=== PATIENT | female | born 1940 | race Caucasian/White ===

== ENCOUNTER 2016-11-15 20:17 | Observation (INO) | payer MEDICARE, OTHER ==
[~2016-11-15] VITALS: Ht 160 cm; Wt 81.4 kg
[2016-11-15 20:28] VITALS: BP 115/67; PULSE 78; RESP 18; TEMP 98.1; O2SAT 98
[2016-11-15] MEDS ORDERED: DONE10TA7 PO (20:48)
[2016-11-15] MEDS ORDERED: ASPI81CH25 PO (20:48)
[2016-11-15] MEDS ORDERED: ATEN25TA PO (20:48)
[2016-11-15] MEDS ORDERED: IRBE300T11 PO (20:48)
[2016-11-15] MEDS ORDERED: CITA20TA4 PO (20:48)
[2016-11-15] MEDS ORDERED: SODIUM CHLOR 0.9% 1000 ML INJ 1,000 ML IV ONE (21:15)
[2016-11-15] MEDS ORDERED: SODIUM CHLORIDE 0.9% FLUSH 10 ML FLUSH IVF PRN ×2 (21:15→23:15)
[2016-11-15 21:28] LABS: AUTOMATED NEUTROPHIL # 9.5 TH/MM3 (1.8-7.7); BASOPHIL # 0.3 TH/MM3 (0-0.2); BASOPHIL % 2.8 % (0.0-2.0); EOSINOPHIL % 0.1 % (0.0-4.0); HEMATOCRIT 36.4 % (35.0-46.0); HEMO FLAGS DIFF FINAL; LYMPH % 13.7 % (9.0-44.0); LYMPHOCYTE # 1.6 TH/MM3 (1.0-4.8); MEAN CELL VOLUME 90.6 FL (80.0-100.0); MEAN CORPUSCULAR HEMOGLOBIN 30.3 PG (27.0-34.0); MEAN CORPUSCULAR HGB CONC 33.4 % (32.0-36.0); MONO % 4.3 % (0.0-8.0); NEUT % 79.1 % (16.0-70.0); PLATELET COUNT 393 TH/MM3 (150-450); RED BLOOD COUNT 4.02 MIL/MM3 (4.00-5.30); RED CELL DISTRIBUTION WIDTH 12.3 % (11.6-17.2); WHITE BLOOD COUNT 11.9 TH/MM3 (4.0-11.0)
[2016-11-15 21:39] LABS: CHLORIDE 102 MEQ/L (98-107); POTASSIUM 3.7 MEQ/L (3.5-5.1); SODIUM (NA) 140 MEQ/L (136-145)
[2016-11-15 21:42] LABS: ANION GAP 11 MEQ/L (5-15); BICARBONATE 26.9 MEQ/L (21.0-32.0); MAGNESIUM 2.2 MG/DL (1.5-2.5)
[2016-11-15 21:43] LABS: BLOOD UREA NITROGEN 17 MG/DL (7-18)
[2016-11-15 21:45] LABS: ALT (GPT) 20 U/L (10-53)
[2016-11-15 21:45] LABS: BLOOD, URINE TRACE (NEG); GLUCOSE,URINE NEG (NEG); KETONE, URINE TRACE mg/dL (NEG); NITRITE,URINE NEG (NEG)
[2016-11-15 21:46] LABS: APTT (PATIENT) 22.3 SEC (24.3-30.1); AST (GOT) 13 U/L (15-37); GLOMERULAR FILTRATION RATE 48 ML/MIN (>89)
[2016-11-15 21:47] LABS: TOTAL BILIRUBIN ADULT 0.9 MG/DL (0.2-1.0)
[2016-11-15 21:48] LABS: URINE COLOR YELLOW (YELLW/STRAW)
[2016-11-15 21:48] LABS: ALKALINE PHOSPHATASE 89 U/L (45-117); CREATINE KINASE 114 U/L (26-192)
[2016-11-15 21:49] VITALS: BP_SYST 121; BP_SYST 131; BP_DIAS 63; BP_DIAS 66; RESP 18; RESP 20
[2016-11-15 21:49] LABS: BACTERIA, URINE MANY /hpf
[2016-11-15 21:50] LABS: COMMENT (UR) CULTURE INDICATED; CULTURE IF INDICATED CULTURE INDICATED; RBC, URINE 0-3 /hpf (0-3); SQUAMOUS EPITHELIAL CELL URINE 0-5 /hpf (0-5)
[2016-11-15 22:01] LABS: CKMB 1.8 NG/ML (0.5-3.6)
--- NOTE | 2016-11-15 22:05 | PD ---
HPI Chief Complaint: General Weakness Time Seen by Provider: 21:15 Travel History International Travel<30 days: No Contact w/Intl Traveler<30days: No Traveled to known affect area: No History of Present Illness HPI 76-year-old female presents to the emergency department by EMS transport from her home after being found by her son on the couch with generalized weakness. Patient lives alone and son checks on her frequently. Patient today spoke to her son around 2 PM and complained of some weakness and he felt that perhaps her blood sugar was low and told her to make sure she ate some lunch. Patient reports that sometime thereafter she does not recall she felt of dizziness spell and close her eyes and over dry skin that her vision went black and sometime thereafter she found herself awakening on the floor. Patient denies any injury. Patient was able to get up off the floor and get to her couch. Patient sometime thereafter spoke to her sister who lives in [place] and the sister felt that the patient should be evaluated so called the patient's son who called her and noted that she complained to him of generalized weakness so he went to her home to check on her. So sometime between 2 PM and possibly 3 PM she had an episode of syncope as she states that she recalls looking at the clock talking to her son sometime around 2:15 PM and then when she awakened she looked at the clock at around 3:15; thereafter sometime her sister spoke to her around 5:20 PM and then the son checked on her around 6:00. The son checked her blood pressure and noticed that when she would stand her blood pressure seemed to drop. He is very concerned that she had possibly an episode of low blood sugar or orthostatic hypotensive episode with syncope. Patient also complained to him about having some left-sided chest discomfort or shoulder pain. Patient here now states that she has no headache or neck injury but does complain of some elbow pain. Patient's had no previous history of cardiac disease or myocardial infarction. Patient is a nonsmoker. Patient does have history of hypertension but no history of dyslipidemia or diabetes. No prior history of syncope. Son and patient both report however more recently she's had 2 similar spells loss in intensity without syncope but had near syncope in the past month. Patient has not followed up with her primary regarding these spells. Patient's had no fever no chills no urinary symptoms no abdominal pain no previous chest pain and no recent long distance travel protracted bedrest surgical procedure lower extremity pain or swelling or pleuritic pain. Patient recently diagnosed with schizophrenia and mild dementia. 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, removed) Schizophrenia: Yes Ulcer: Yes Tetanus Vaccination: Unknown Influenza Vaccination: No ?: Not Menopausal: Yes Tubal Ligation: Yes Social History Alcohol Use: No Tobacco Use: No Allergies-Medications (Allergen,Severity, Reaction): Coded Allergies: No Known Allergies (Unverified , 11/15/16) Reported Meds & Prescriptions Reported Meds & Active Scripts Active Reported Aspirin Low Strength (Aspirin) 81 Mg Chew 81 Mg PO HS Atenolol 25 Mg Tab 25 Mg PO HS Citalopram (Citalopram Hydrobromide) 20 Mg Tab 20 Mg PO HS Donepezil 10 Mg Tab 10 Mg PO HS Irbesartan 300 Mg Tab 300 Mg PO DAILY Review of Systems Except as stated in HPI: all other systems reviewed are Neg General / Constitutional: No: Fever, Chills Eyes: No: Visual changes HENT: Positive: Lightheadedness, No: Headaches, Congestion, Neck Stiffness, Neck Pain Cardiovascular: Positive: Syncope, No: Chest Pain or Discomfort, Palpitations , Diaphoresis Respiratory: No: Shortness of Breath, Pleuritic Pain Gastrointestinal: No: Nausea, Vomiting, Diarrhea, Abdominal Pain Genitourinary: No: Urgency, Frequency, Dysuria, Flank Pain Musculoskeletal: No: Myalgias, Arthralgias Skin: No Rash Neurologic: Positive: Weakness, Syncope, No: Dizziness, Focal Abnormalities, Coordination Problem, Headache, Change in Mentation, Slurred Speech, Paresthesia , Incontinence Psychiatric: No: Anxiety Hematologic/Lymphatic: No: Lymph Node Enlargement Physical Exam Narrative GENERAL: Well-developed well-nourished pleasant female in no acute distress no respiratory distress, GCS 15. SKIN: Warm and dry. HEAD: Atraumatic. Normocephalic. Left posterior occiput small soft tissue hematoma tender to palpation without ecchymosis abrasion or laceration bony abnormalities. EYES: Pupils equal and round. No scleral icterus. No injection or drainage. Extraocular muscles intact. ENT: No nasal bleeding or discharge. Mucous membranes pink and moist. Airway is patent. NECK: Trachea midline. No JVD. No tenderness to palpation along the midline cervical spine and no bony step-off. CARDIOVASCULAR: Regular rate and rhythm. RESPIRATORY: No accessory muscle use. Clear to auscultation. Breath sounds equal bilaterally. GASTROINTESTINAL: Abdomen soft, non-tender, nondistended. Hepatic and splenic margins not palpable. No guarding or rebound. MUSCULOSKELETAL: Extremities without clubbing, cyanosis, or edema. No obvious deformities. Radial and dorsalis pedis pulses 2+ to palpation. NEUROLOGICAL: Awake and alert. No obvious cranial nerve deficits. Motor grossly within normal limits. Five out of 5 muscle strength in the arms and legs. No pronator drift. No limb ataxia. Sensory exam grossly intact. Normal speech. PSYCHIATRIC: Appropriate mood and affect; insight and judgment normal. Data Data Last Documented VS Vital Signs Date Time Temp Pulse Resp B/P Pulse Ox O2 Delivery O2 Flow Rate FiO2 11/15/16 22:58 Room Air 11/15/16 22:45 75 16 124/63 98 11/15/16 20:28 98.1 Orders Electrocardiogram (11/15/16 21:15) Complete Blood Count With Diff (11/15/16 21:15) Comprehensive Metabolic Panel (11/15/16 21:15) Magnesium (Mg) (11/15/16 21:15) Ckmb (Isoenzyme) Profile (11/15/16 21:15) Troponin I (11/15/16 21:15) Act Partial Throm Time (Ptt) (11/15/16 21:15) Prothrombin Time / Inr (Pt) (11/15/16 21:15) Urinalysis - C+S If Indicated (11/15/16 21:15) Chest, Single Ap (11/15/16 21:15) Ct Brain W/O Iv Contrast(Rout) (11/15/16 21:15) Ct Cerv Spine W/O Contrast (11/15/16 21:15) Ecg Monitoring (11/15/16 21:15) Iv Access Insert/Monitor (11/15/16 21:15) Oximetry (11/15/16 21:15) Sodium Chloride 0.9% Flush (Ns Flush) (11/15/16 21:15) Sodium Chlor 0.9% 1000 Ml Inj (Ns 1000 M (11/15/16 21:15) Orthostatic Vital Signs (11/15/16 21:15) Elbow, Complete (4 Vws) (11/15/16 ) Pelvis, Ap Only (Routine) (11/15/16 ) CKMB (11/15/16 21:23) CKMB% (11/15/16 21:23) Urine Culture (11/15/16 21:35) Ceftriaxone Inj (Rocephin Inj) (11/15/16 22:15) Sodium Chlorid 0.9% 500 Ml Inj (Ns 500 M (11/15/16 22:45) Labs Laboratory Tests Test 11/15/16 11/15/16 21:23 21:35 White Blood Count 11.9 TH/MM3 Red Blood Count 4.02 MIL/MM3 Hemoglobin 12.2 GM/DL Hematocrit 36.4 % Mean Corpuscular Volume 90.6 FL Mean Corpuscular Hemoglobin 30.3 PG Mean Corpuscular Hemoglobin 33.4 % Concent Red Cell Distribution Width 12.3 % Platelet Count 393 TH/MM3 Mean Platelet Volume 6.9 FL Neutrophils (%) (Auto) 79.1 % Lymphocytes (%) (Auto) 13.7 % Monocytes (%) (Auto) 4.3 % Eosinophils (%) (Auto) 0.1 % Basophils (%) (Auto) 2.8 % Neutrophils # (Auto) 9.5 TH/MM3 Lymphocytes # (Auto) 1.6 TH/MM3 Monocytes # (Auto) 0.5 TH/MM3 Eosinophils # (Auto) 0.0 TH/MM3 Basophils # (Auto) 0.3 TH/MM3 CBC Comment DIFF FINAL Differential Comment Prothrombin Time 11.0 SEC Prothromb Time International 1.0 RATIO Ratio Activated Partial 22.3 SEC Thromboplast Time Sodium Level 140 MEQ/L Potassium Level 3.7 MEQ/L Chloride Level 102 MEQ/L Carbon Dioxide Level 26.9 MEQ/L Anion Gap 11 MEQ/L Blood Urea Nitrogen 17 MG/DL Creatinine 1.10 MG/DL Estimat Glomerular Filtration 48 ML/MIN Rate Random Glucose 145 MG/DL Calcium Level 8.9 MG/DL Magnesium Level 2.2 MG/DL Total Bilirubin 0.9 MG/DL Aspartate Amino Transf 13 U/L (AST/SGOT) Alanine Aminotransferase 20 U/L (ALT/SGPT) Alkaline Phosphatase 89 U/L Total Creatine Kinase 114 U/L Creatine Kinase MB 1.8 NG/ML Troponin I LESS THAN 0.02 NG/ML Total Protein 7.1 GM/DL Albumin 3.2 GM/DL Urine Color YELLOW Urine Turbidity CLOUDY Urine pH 7.0 Urine Specific [place] 1.025 Urine Protein 30 mg/dL Urine Glucose (UA) NEG mg/dL Urine Ketones TRACE mg/dL Urine Occult Blood TRACE Urine Nitrite NEG Urine Bilirubin NEG Urine Leukocyte Esterase TRACE Urine RBC 0-3 /hpf Urine WBC 3-5 /hpf Urine Squamous Epithelial 0-5 /hpf Cells Urine Bacteria MANY /hpf Microscopic Urinalysis Comment CULTURE INDICATED MDM Medical Decision Making Medical Screen Exam Complete: Yes Emergency Medical Condition: Yes Medical Record Reviewed: Yes Interpretation(s) EKG: Sinus rhythm rate [address] elevation or injury pattern change noted Last Impressions Head CT 11/15/162114 Signed Impressions: Service Date/Time: Tuesday, November 15, 2016 21:39 - CONCLUSION: No acute intracranial findings Dario Perez MD Cervical Spine CT 11/15/162114 Signed Impressions: Service Date/Time: Tuesday, November 15, 2016 21:39 - CONCLUSION: No acute bony injury of the cervical spine Dario Perez MD CBC & BMP Diagram 11/15/16 21:23 Vital Signs Date Time Temp Pulse Resp B/P Pulse Ox O2 Delivery O2 Flow Rate FiO2 11/15/16 21:49 80 18 131/63 85 19 122/61 101 20 121/66 11/15/16 20:34 Room Air 11/15/16 20:28 98.1 78 18 115/67 98 Chest x-ray reading per radiologist Dr. Perez no acute disease Elbow x-ray reading per radiologist Dr. Perez unremarkable elbow Pelvis x-ray reading per radiologist Dr. Perez no acute bony injury Differential Diagnosis Syncope, arrhythmia, ACS, [place], ICH, TIA, CVA, seizure, anemia Narrative Course Patient placed on quality assurance monitor final IV access obtained specimens collected and sent for resulting Imaging studies ordered Patient resting comfortably conversant with son in no apparent acute distress or respiratory distress EKG no ST elevation or injury pattern change noted Imaging studies revealed no acute abnormality regarding CT brain noncontrast, CT cervical spine noncontrast chest x-ray elbow x-ray and pelvis x-ray; lab values remarkable for mild elevation of total white cell count 11,900 with 79% neutrophils otherwise values grossly normal range chemistries remarkable for being within normal limits except mild elevation of creatinine CK is not elevated 114 with a CK-MB of 1.8 MB percent is not elevated department and I less than 0.02, not elevated Patient given Rocephin 1 g IV piggyback and a 500 cc bolus of normal saline due to orthostatic measurements changes of heart rate greater than 20 from supine to standing blood pressure remains stable supine to standing with that 10 mmHg variance It is now 23:00 patient lives alone we'll place an observation for syncopal episode that was unwitnessed for ongoing cardiac monitoring and for IV antibiotics and fluid rehydration patient does not have family resources available. At 23:[address] Chavez accept patient for observation admission Physician Communication Physician Communication call placed to [facility] service MD Diagnosis Primary Impression: Syncope Additional Impression: UTI (urinary tract infection) Admitting Information Admitting Physician Requests: Observation Digna Rider MD November 15, 2016 22:05 Digna Rider MD November 15, 2016 22:05
[2016-11-15] MEDS ORDERED: cefTRIAXone INJ 1,000 MG in SODIUM CHLORIDE 0.9% INJ 100 ML IV ONE (22:15)
--- NOTE | 2016-11-15 22:21 | RADHPO ---
EXAM DATE/TIME: 11/15/2016 21:39 [facility] COMPARISON: No previous studies available for comparison. INDICATIONS : Dizziness. Fall. RADIATION DOSE: 60.87 CTDIvol (mGy) MEDICAL HISTORY : Dementia. Hypertension. SURGICAL HISTORY : None. ENCOUNTER: Initial ACUITY: 1 day PAIN SCALE: 2/10 LOCATION: cranial TECHNIQUE: Multiple contiguous axial images were obtained of the head. Using automated exposure control and adj ustment of the mA and/or kV according to patient size, radiation dose was kept as low as reasonably a chievable to obtain optimal diagnostic quality images. FINDINGS: There is mild symmetric cortical atrophy. No evidence of mass or hemorrhage. The stomach to suggest a cute infarction. Ventricles are symmetric and normal. Extracranial structures are benign in intact. CONCLUSION: No acute intracranial findings Dario Perez MD on November 15, 2016 at 22:18 Board Certified Radiologist. This report was verified electronically.
--- NOTE | 2016-11-15 22:32 | RADHPO ---
EXAM DATE/TIME: 11/15/2016 21:39 [facility] COMPARISON: No previous studies available for comparison. INDICATIONS : Trauma. Neck pain. RADIATION DOSE: 26.49 CTDIvol (mGy) MEDICAL HISTORY : Hypertension. Dementia. SURGICAL HISTORY : None. ENCOUNTER: Initial ACUITY: 1 day PAIN SCALE: 2/10 LOCATION: Bilateral neck TECHNIQUE: Volumetric scanning of the cervical spine was performed. Multiplanar reconstructions in the sagittal, coronal and oblique axial planes were performed. Using automated exposure control and adjustment o f the mA and/or kV according to patient size, radiation dose was kept as low as reasonably achievable to obtain optimal diagnostic quality images. FINDINGS: Cervical spine alignment is satisfactory. There is no evidence of cervical spine fracture. There are degenerative changes throughout with disc space narrowing and endplate osteophytes most significantly at C4-5, C5-6 and C6-7 interspaces. There appears to be solid bony fusion twin C3 and C4. There is n o evidence of bony canal or foraminal compromise. No paraspinal hematoma is present. There are nodule s involving the thyroid.CONCLUSION: No acute bony injury of the cervical spine Dario Perez MD on November 15, 2016 at 22:29 Board Certified Radiologist. This report was verified electronically.
--- NOTE | 2016-11-15 22:36 | RADHPO ---
EXAM DATE/TIME: 11/15/2016 21:56 [facility] COMPARISON: No previous studies available for comparison. INDICATIONS : Fall. heart palpitations. MEDICAL HISTORY : None. SURGICAL HISTORY : None. ENCOUNTER: Initial ACUITY: 1 day PAIN SCORE: 2/10 LOCATION: Bilateral chest FINDINGS: A single view of the chest demonstrates the lungs to be symmetrically aerated without evidence of mas s, infiltrate or effusion. The cardiomediastinal contours are unremarkable. Osseous structures are intact. CONCLUSION: No acute disease. Dario Perez MD on November 15, 2016 at 22:35 Board Certified Radiologist. This report was verified electronically.
--- NOTE | 2016-11-15 22:36 | RADHPO ---
EXAM DATE/TIME: 11/15/2016 21:52 [facility] COMPARISON: No previous studies available for comparison. INDICATIONS : Patient complains of left elbow pain. MEDICAL HISTORY : None. SURGICAL HISTORY : None. ENCOUNTER: Initial ACUITY: 1 month PAIN SCORE: 2/10 LOCATION: Left elbow FINDINGS: Multiple view examination of the left elbow demonstrates no soft tissue swelling, joint effusion, or fracture. The osseous structures are in normal alignment. Bony mineralization is normal. CONCLUSION: Unremarkable examination of the left elbow. Dario Perez MD on November 15, 2016 at 22:34 Board Certified Radiologist. This report was verified electronically.
--- NOTE | 2016-11-15 22:39 | RADHPO ---
EXAM DATE/TIME: 11/15/2016 22:02 [facility] COMPARISON: No previous studies available for comparison. INDICATIONS : Fall, complains of pelvic pain. MEDICAL HISTORY : None. SURGICAL HISTORY : None. ENCOUNTER: Initial ACUITY: 1 day PAIN SCORE: 2/10 LOCATION: Pelvis FINDINGS: The hips are symmetric without evidence of fracture or dislocation. No displaced pelvic fractures cristina ntified. There are mild degenerative arthritic changes present in the spine and hips. CONCLUSION: No acute bony injury Dario Perez MD on November 15, 2016 at 22:36 Board Certified Radiologist. This report was verified electronically.
[2016-11-15 22:45] VITALS: BP 124/63; PULSE 75; RESP 16; O2SAT 98
[2016-11-15] MEDS ORDERED: SODIUM CHLORID 0.9% 500 ML INJ 500 ML IV ONE (22:45)
[2016-11-15] MEDS ORDERED: ONDANSETRON HCL 4 MG/2 ML VIAL IVP PRN (23:30)
[2016-11-15] MEDS ORDERED: NALOXONE HCL 0.4 MG/ML AMP IV PRN (23:30)
[2016-11-15] MEDS ORDERED: SODIUM CHLORIDE 0.9% FLUSH 10 ML FLUSH IV FLUSH PRN (23:30)
[2016-11-15] MEDS ORDERED: ACETAMINOPHEN 325 MG TAB PO PRN (23:30)
[2016-11-15 23:50] VITALS: BP 135/67; PULSE 72; RESP 16; O2SAT 98
[2016-11-15] MEDS: SODIUM CHLOR 0.9% 1000 ML INJ 1,000 ML IV SCH (23:57)
[2016-11-16] VITALS (12 sets, daily range): BP systolic 104–153; BP diastolic 60–81; PULSE 74–127; RESP 13–22; TEMP 97.4–98.7; O2SAT 96–99
[2016-11-16] MEDS ORDERED: NITROGLYCERIN 0.4 MG SL 25 TABS/BTL SL ONE
[2016-11-16] MEDS ORDERED: SODIUM CHLOR 0.9% 250 ML INJ 250 ML IV ONE
[2016-11-16] MEDS: SODIUM CHLOR 0.9% 1000 ML INJ 1,000 ML IV SCH (05:41)
[2016-11-16] MEDS ORDERED: SODIUM CHLORIDE 0.9% FLUSH 10 ML FLUSH IV FLUSH SCH (09:00)
[2016-11-16] MEDS ORDERED: ASPIRIN 81 MG CHEW TAB CHEW SCH (09:00)
[2016-11-16] MEDS: cefTRIAXone INJ 1,000 MG in SODIUM CHLORIDE 0.9% INJ 100 ML IV SCH (09:05)
[2016-11-16] MEDS: SODIUM CHLORIDE 0.9% FLUSH 10 ML FLUSH IV FLUSH SCH ×2 (09:09→20:52)
[2016-11-16 13:34] LABS: CHLORIDE 106 MEQ/L (98-107); POTASSIUM 3.7 MEQ/L (3.5-5.1); SODIUM (NA) 143 MEQ/L (136-145)
[2016-11-16 13:37] LABS: ANION GAP 8 MEQ/L (5-15); BICARBONATE 29.2 MEQ/L (21.0-32.0); BLOOD UREA NITROGEN 13 MG/DL (7-18)
[2016-11-16 13:41] LABS: GLOMERULAR FILTRATION RATE 66 ML/MIN (>89)
[2016-11-16 13:44] LABS: CREATINE KINASE 179 U/L (26-192)
--- NOTE | 2016-11-16 14:11 | HHI.HP ---
[facility] Physician Unknown Admission Diagnosis syncope; UTI/bacteruria Diagnoses: Chief Complaint: Syncope Travel History International Travel<30 Days: No Contact w/Intl Traveler <30 Da: No Traveled to Known Affected Are: No History of Present Illness This is a 76-year-old female with a history of hypertension, schizophrenia, bipolar disorder and dementia. She was brought in to the emergency department by EMS transport from her home after being found by her son on the couch with generalized weakness. Patient lives alone and son checks on her frequently. Patient states she was feeling warm yesterday afternoon around 2:15. She remembers standing between the living room and dining room. Next thing she remembers she was on the floor an hour later with her head under the table denies any injuries no headache, neck pain or extremity pain. Her sister from [place] found out what happened and cold patient's son to assess her. He is a retired EMT. She was orthostatic blood pressures supine 135/80 heart rate of 80 and when she stood up BP dropped to 106/62 heart rate went up to 109. She also developed nausea and dizziness. Patient states she had 3 other episodes in the past week. States she's doesn't eat much and doesn't drink. Her appetite is poor and lost some weight from 209 to 175 pounds in the span of 5 years. Family also reports of painless rectal bleeding for the past week. Patient still states she would notice bright red blood when she wipes herself. Denies abdominal pain, rectal pain, constipation and diarrhea. She had colonoscopy with polyp removal in 2011 . She already has an appointment next week at [facility]. Last night she developed a mild to moderate left sharp chest pain without radiation, nausea, vomiting, palpitations, shortness of breath, dizziness and diaphoresis. She received aspirin and sublingual nitroglycerin with improvement of her pain. At this time, she feels better without any complaints. Repeat orthostatic negative. No recent immobilization , leg pain and swelling. No new medications. Review of Systems Except as stated in HPI: all other systems reviewed are Neg Past Family Social History Past Medical History Previously mentioned Past Surgical History Tubal ligation, skin cancer removal Reported Medications Aspirin Low Strength (Aspirin) 81 Mg Chew 81 Mg PO HS Atenolol 25 Mg Tab 25 Mg PO HS Citalopram (Citalopram Hydrobromide) 20 Mg Tab 20 Mg PO HS Donepezil 10 Mg Tab 10 Mg PO HS Irbesartan 300 Mg Tab 300 Mg PO DAILY Allergies: Coded Allergies: No Known Allergies (Unverified , 11/15/16) Family History Colon cancer and heart disease Social History Does not smoke or drink. She lives alone Physical Exam Vital Signs Vital Signs Date Time Temp Pulse Resp B/P Pulse Ox O2 Delivery O2 Flow Rate FiO2 11/16/16 11:19 98.7 80 19 99 11/16/16 08:47 96 21 11/16/16 07:19 11/16/16 03:19 74 13 123/62 97 11/16/16 01:21 75 18 117/60 98 11/16/16 01:15 75 11/16/16 01:15 98.2 75 15 123/63 99 11/16/16 01:01 97 21 11/16/16 00:07 79 16 104/61 97 Room Air 11/16/16 00:05 17 11/15/16 23:50 72 16 135/67 98 Room Air 11/15/16 22:58 Room Air 11/15/16 22:45 75 16 124/63 98 Room Air 11/15/16 21:49 80 18 131/63 85 19 122/61 101 20 121/66 11/15/16 20:34 Room Air 11/15/16 20:28 98.1 78 18 115/67 98 Physical Exam GENERAL: This is a well-nourished, well-developed patient, in no apparent distress. SKIN: No rashes, ecchymoses or lesions. Cool and dry. HEAD: Tender left occiput. Normocephalic. No temporal or scalp tenderness. EYES: Pupils equal round and reactive. Extraocular motions intact. No scleral icterus. No injection or drainage. ENT: Nose without bleeding, purulent drainage or septal hematoma. Throat without erythema, tonsillar hypertrophy or exudate. Uvula midline. Airway patent. NECK: Trachea midline. No JVD or lymphadenopathy. Supple, nontender, no meningeal signs. CARDIOVASCULAR: Regular rate and rhythm without murmurs, gallops, or rubs. RESPIRATORY: Clear to auscultation. Breath sounds equal bilaterally. No wheezes , rales, or rhonchi. GASTROINTESTINAL: Abdomen soft, non-tender, nondistended. No guarding. MUSCULOSKELETAL: Extremities without clubbing, cyanosis, or edema. No joint tenderness, effusion, or edema noted. No calf tenderness. Negative Homans sign bilaterally. NEUROLOGICAL: Awake and alert. Cranial nerves II through XII intact. Motor and sensory grossly within normal limits. Five out of 5 muscle strength in all muscle groups. Normal speech. Laboratory Laboratory Tests Test 11/15/16 11/15/16 11/16/16 21:23 21:35 13:00 White Blood Count 11.9 Red Blood Count 4.02 Hemoglobin 12.2 Hematocrit 36.4 Mean Corpuscular Volume 90.6 Mean Corpuscular Hemoglobin 30.3 Mean Corpuscular Hemoglobin 33.4 Concent Red Cell Distribution Width 12.3 Platelet Count 393 Mean Platelet Volume 6.9 Neutrophils (%) (Auto) 79.1 Lymphocytes (%) (Auto) 13.7 Monocytes (%) (Auto) 4.3 Eosinophils (%) (Auto) 0.1 Basophils (%) (Auto) 2.8 Neutrophils # (Auto) 9.5 Lymphocytes # (Auto) 1.6 Monocytes # (Auto) 0.5 Eosinophils # (Auto) 0.0 Basophils # (Auto) 0.3 CBC Comment DIFF FINAL Differential Comment Prothrombin Time 11.0 Prothromb Time International 1.0 Ratio Activated Partial 22.3 Thromboplast Time Sodium Level 140 143 Potassium Level 3.7 3.7 Chloride Level 102 106 Carbon Dioxide Level 26.9 29.2 Anion Gap 11 8 Blood Urea Nitrogen 17 13 Creatinine 1.10 0.83 Estimat Glomerular Filtration 48 66 Rate Random Glucose 145 119 Calcium Level 8.9 8.4 Magnesium Level 2.2 2.0 Total Bilirubin 0.9 Aspartate Amino Transf 13 (AST/SGOT) Alanine Aminotransferase 20 (ALT/SGPT) Alkaline Phosphatase 89 Total Creatine Kinase 114 179 Creatine Kinase MB 1.8 Troponin I LESS THAN 0.02 LESS THAN 0.02 Total Protein 7.1 Albumin 3.2 Urine Color YELLOW Urine Turbidity CLOUDY Urine pH 7.0 Urine Specific [place] 1.025 Urine Protein 30 Urine Glucose (UA) NEG Urine Ketones TRACE Urine Occult Blood TRACE Urine Nitrite NEG Urine Bilirubin NEG Urine Leukocyte Esterase TRACE Urine RBC 0-3 Urine WBC 3-5 Urine Squamous Epithelial 0-5 Cells Urine Bacteria MANY Microscopic Urinalysis Comment CULTURE INDICATED Date/Time Procedure Status Source Growth 11/15/16 21:35 Urine Culture Received Urine Clean Catch Pending Result Diagram: 11/15/16212211/16/16 1300 Imaging EKG tracing 2 interpreted by me with sinus rhythm nonspecific anterior lead T changes Chest x-ray image interpreted by me with no acute cardiopulmonary disease Last Impressions Head CT 11/15/162114 Signed Impressions: Service Date/Time: Tuesday, November 15, 2016 21:39 - CONCLUSION: No acute intracranial findings Dario Perez MD Chest X-Ray 11/15/162114 Signed Impressions: Service Date/Time: Tuesday, November 15, 2016 21:56 - CONCLUSION: No acute disease. Dario Perez MD Cervical Spine CT 11/15/162114 Signed Impressions: Service Date/Time: Tuesday, November 15, 2016 21:39 - CONCLUSION: No acute bony injury of the cervical spine Dario Perez MD Pelvis X-Ray 11/15/16 0000 Signed Impressions: Service Date/Time: Tuesday, November 15, 2016 22:02 - CONCLUSION: No acute bony injury Dario Perez MD Elbow X-Ray 11/15/16 0000 Signed Impressions: Service Date/Time: Tuesday, November 15, 2016 21:52 - CONCLUSION: Unremarkable examination of the left elbow. Dario Perez MD Assessment and Plan Problem List: (1) Syncope ICD Code: R55 Status: Acute Assessment and Plan This is a 76-year-old female transported from her home after being found by her son on the couch with generalized weakness. Patient states she was feeling warm yesterday afternoon around 2:15. She remembers standing between the living room and dining room. Next thing she remembers she was on the floor an hour later with her head under the table. She was orthostatic blood pressures supine 135/80 heart rate of 80 and when she stood up BP dropped to 106/62 heart rate went up to 109. She also developed nausea and dizziness. Patient states she had 3 other episodes in the past week. States she's doesn't eat much and doesn't drink. Her appetite is poor and lost some weight from 209 to 175 pounds in the span of 5 years. Syncope likely secondary to orthostatic hypotension from dehydration. History of hypertension. Patient received fluid hydration. Repeat orthostatics improved. She is nonfocal. Continue to hold BP medications for now. Monitor on telemetry. Physical therapy evaluation Acute kidney injury. This is improved after IV hydration Chest pain. EKG without ischemic changes. Cardiac enzymes negative 2. Patient with risk factors which are hypertension and family history. Patient will undergo Lexiscan in the morning Abnormal urinalysis with leukocytosis. Continue Rocephin and follow-up urine culture Bright red blood per rectum with weight loss and anorexia. No anemia. She had colonoscopy with polyp removal in 2011 . She already has an appointment next week at [facility]. Chronic medical conditions of schizophrenia, bipolar disorder and dementia. Continue outpatient medications as appropriate Consult case management patient's son requesting home health care physical therapy and visiting nurse Code Status Full Discussed Condition With Patient and family Joni Guido MD November 16, 2016 14:11
--- NOTE | 2016-11-16 14:12 | HHI.DCPOC ---
Discharge Care Plan Diagnosis: (1) Syncope Your Health Problems Are: Difficulty with ADL Exercise Tolerance Goals to Promote Your Health * To prevent worsening of your condition and complications * To maintain your health at the optimal level Directions to Meet Your Goals Take your medications as prescribed Follow your dietary instruction Follow activity as directed Keep your appointments as scheduled Take your immunizations and boosters as scheduled If your symptoms worsen call your PCP, if no PCP go to Urgent Care Center or Emergency Room Smoking is Dangerous to Your Health. Avoid second hand smoke Call the 24-hour hour crisis hotline for domestic abuse at Joni Guido MD November 16, 2016 14:12
--- NOTE | 2016-11-16 15:46 | EKG ---
Date Performed: 11/15/2016 Time Performed: 21:22:14 PTAGE: 76 years EKG: Sinus rhythm . Leftward axis Anterior T wave changes are nonspecific Compared to prior tracing no significant nguyễn ge Borderline ECG PREVIOUS TRACING : 01/22/2004 15.01 DOCTOR: Rigo Coulter Interpretating Date/Time 11/16/2016 15:44:15
--- NOTE | 2016-11-16 15:46 | EKG ---
Date Performed: 11/15/2016 Time Performed: 23:49:28 PTAGE: 76 years EKG: Sinus rhythm . Compared to prior tracing no significant change Normal ECG PREVIOUS TRACING : 11/15/2016 21.22 DOCTOR: Rigo Coulter Interpretating Date/Time 11/16/2016 15:44:23
[2016-11-16] MEDS ORDERED: ASPIRIN 81 MG CHEW TAB PO SCH (21:00)
[2016-11-16] MEDS ORDERED: CITALOPRAM HYDROBROMIDE 20 MG TAB PO SCH (21:00)
[2016-11-16] MEDS ORDERED: DONEPEZIL HCL 5 MG TAB PO SCH (21:00)
[2016-11-17 06:41] LABS: AUTOMATED NEUTROPHIL # 4.4 TH/MM3 (1.8-7.7); BASOPHIL # 0.1 TH/MM3 (0-0.2); EOSINOPHIL # 0.2 TH/MM3 (0-0.4); EOSINOPHIL % 1.9 % (0.0-4.0); HEMO FLAGS DIFF FINAL; LYMPH % 31.9 % (9.0-44.0); LYMPHOCYTE # 2.6 TH/MM3 (1.0-4.8); MEAN CELL VOLUME 90.3 FL (80.0-100.0); MEAN CORPUSCULAR HEMOGLOBIN 30.4 PG (27.0-34.0); MEAN CORPUSCULAR HGB CONC 33.6 % (32.0-36.0); MONO % 10.2 % (0.0-8.0); PLATELET COUNT 322 TH/MM3 (150-450); RED BLOOD COUNT 3.77 MIL/MM3 (4.00-5.30); RED CELL DISTRIBUTION WIDTH 12.4 % (11.6-17.2); WHITE BLOOD COUNT 8.1 TH/MM3 (4.0-11.0)
[2016-11-17 06:45] LABS: POTASSIUM 3.6 MEQ/L (3.5-5.1)
[2016-11-17 06:48] LABS: BICARBONATE 27.1 MEQ/L (21.0-32.0); MAGNESIUM 2.1 MG/DL (1.5-2.5)
[2016-11-17] MEDS: cefTRIAXone INJ 1,000 MG in SODIUM CHLORIDE 0.9% INJ 100 ML IV SCH (07:58)
[2016-11-17 08:31] VITALS: BP 156/86; PULSE 80; RESP 17; TEMP 97.5; O2SAT 97
[2016-11-17] MEDS: SODIUM CHLORIDE 0.9% FLUSH 10 ML FLUSH IV FLUSH SCH (09:30)
[2016-11-17] MEDS ORDERED: MACR100C2 PO (10:23)
--- NOTE | 2016-11-17 10:41 | HHI.FF ---
Face to Face Verification Diagnosis: (1) Syncope Home Health Nursing Order: Medical education Diabetic education Medication education-adverse effect Nursing assessment with vital signs I have seen patient Sofia Stafford on 11/17/16. My clinical findings support the need for the requested home health care services because: Med compliance is questionable I certify that my clinical findings support that this patient is homebound because: Unsafe to leave home unassisted Teena Corea MD November 17, 2016 10:41
--- NOTE | 2016-11-17 10:46 | HHI.PR ---
Subjective Remarks Patient sitting on the edge of the bed , no new symptoms of syncope or presyncope Blood pressure started to olive picker her BMP is much better I discussed with PT and he recommended nursing to check on patient at least for short period of time. I advised the patient to keep monitoring her blood pressure as he goes up to go back to her that pressure medication however she will need to see her PCP to adjust this and to keep herself hydrated. Objective Vitals Vital Signs Date Time Temp Pulse Resp B/P Pulse Ox O2 Delivery O2 Flow Rate FiO2 11/17/16 08:31 97.5 80 17 156/86 97 11/16/16 23:45 127 11/16/16 20:20 98 21 11/16/16 20:06 82 11/16/16 20:00 97.4 79 16 153/81 98 11/16/16 15:19 84 22 11/16/16 11:19 98.7 80 19 99 I/O 11/16/16 11/16/16 11/16/16 11/17/16 11/17/16 11/17/16 07:00 15:00 23:00 07:00 15:00 23:00 Intake Total 1484 ml 1300 ml 240 ml Output Total 200 ml 500 ml Balance 1284 ml 800 ml 240 ml Intake Oral 500 ml 240 ml IV Total 1484 ml 800 ml Output Urine Total 200 ml 500 ml # Voids 3 1 # Bowel Movements 1 Result Diagram: 11/17/1651911/17/16519 Imaging Last Impressions Head CT 11/15/162114 Signed Impressions: Service Date/Time: Tuesday, November 15, 2016 21:39 - CONCLUSION: No acute intracranial findings Dario Perez MD Chest X-Ray 11/15/162114 Signed Impressions: Service Date/Time: Tuesday, November 15, 2016 21:56 - CONCLUSION: No acute disease. Dario Perez MD Cervical Spine CT 11/15/162114 Signed Impressions: Service Date/Time: Tuesday, November 15, 2016 21:39 - CONCLUSION: No acute bony injury of the cervical spine Dario Perez MD Pelvis X-Ray 11/15/16 0000 Signed Impressions: Service Date/Time: Tuesday, November 15, 2016 22:02 - CONCLUSION: No acute bony injury Dario Perez MD Elbow X-Ray 11/15/16 0000 Signed Impressions: Service Date/Time: Tuesday, November 15, 2016 21:52 - CONCLUSION: Unremarkable examination of the left elbow. Dario Perez MD Objective Remarks GENERAL: This is a well-nourished, well-developed patient, in no apparent distress. SKIN: No rashes, warm and dry HEAD: Atraumatic. Normocephalic. EYES: Pupils equal round and reactive. Extraocular motions intact. No scleral icterus. ENT: Nose without bleeding, or drainage, Airway patent. NECK: Trachea midline. Supple CARDIOVASCULAR: Regular rate and rhythm without murmurs, gallops, or rubs. RESPIRATORY: Fair air entry bilaterally. No wheezes, rales, or rhonchi. GASTROINTESTINAL: Abdomen soft, non-tender, nondistended. Positive bowel sounds MUSCULOSKELETAL: Extremities without clubbing, cyanosis, or edema. Pedal pulses appreciated NEUROLOGICAL: Awake and alert. Moves all extremity. Normal speech.no focal neurological deficit A/P Problem List: (1) Syncope ICD Code: R55 Status: Acute Assessment and Plan This is a 76-year-old female transported from her home after being found by her son on the couch with generalized weakness. Patient states she was feeling warm yesterday afternoon around 2:15. She remembers standing between the living room and dining room. Next thing she remembers she was on the floor an hour later with her head under the table. She was orthostatic blood pressures supine 135/80 heart rate of 80 and when she stood up BP dropped to 106/62 heart rate went up to 109. She also developed nausea and dizziness. Patient states she had 3 other episodes in the past week. States she's doesn't eat much and doesn't drink. Her appetite is poor and lost some weight from 209 to 175 pounds in the span of 5 years. Syncope likely secondary to orthostatic hypotension from dehydration. History of hypertension. Patient received fluid hydration. Repeat orthostatics improved. She is nonfocal. Continue to hold BP medications for now. Monitor on telemetry. Physical therapy evaluated the patient, they recommended short term nursing to check on the patient after discharge Acute kidney injury. This is improved after IV hydration Chest pain. EKG without ischemic changes. Cardiac enzymes negative 2. Patient with risk factors which are hypertension and family history. Patient will undergo Lexiscan in the morning Abnormal urinalysis with leukocytosis. Continue Rocephin and follow-up urine culture Bright red blood per rectum with weight loss and anorexia. No anemia. She had colonoscopy with polyp removal in 2011 . She already has an appointment next week at [facility]. Chronic medical conditions of schizophrenia, bipolar disorder and dementia. Continue outpatient medications as appropriate Consult case management patient's son requesting home health care physical therapy and visiting nurse Discharge Planning Discharge patient to home Condition on discharge: Improved Healthy heart Diet as tolerated Ad Kailee activity as tolerated with fall and orthostatic to caution Rx written: Hold irbesartan unless blood pressure picks up above normal limits Follow-up with primary care physician in one week Teena Corea MD November 17, 2016 10:46
[2016-11-17] MEDS ORDERED: REGADENOSON INJ 0.4 MG/5 ML SYR IV ONE (11:49)
--- NOTE | 2016-11-17 12:48 | RADHPO ---
EXAM DATE/TIME: 11/17/2016 11:36 [facility] COMPARISON: No previous studies available for comparison. INDICATIONS : Syncopal episode. Left chest discomfort and generalized weakness. Coronary artery disease. DOSE: 25.4 mCi Tc99m Myoview at stress. 8.5 mCi Tc99m Myoview at rest. 0.4 mg Lexiscan STRESS SYMPTOMS: Nausea, dyspnea and heart racing. EJECTION FRACTION: > 70% MEDICAL HISTORY : Hypertension. SURGICAL HISTORY : Tubal ligation. ENCOUNTER: Initial ACUITY: 1 day PAIN SCALE: 3/10 LOCATION: Left chest TECHNIQUE: The patient underwent pharmacologic stress with infusion of prescribed dose. Continuous ECG tracing was monitored during stress. Gated SPECT imaging was performed after stress and conventional SPECT i maging was performed at rest. The examination was performed on a SPECT/CT scanner, both attenuation and non-corrected datasets were reviewed. FINDINGS: DISTRIBUTION: The maximum perfused segment at stress is in the anterolateral wall. PERFUSION STUDY: The pattern of perfusion at stress is within normal limits. GATED STUDY: There is intact wall motion and thickening without hypokinetic or dyskinetic segments. CONCLUSION: No reversible perfusion defects to suggest ischemia. Normal ejection fraction. RISK CATEGORY: Low (<1% Annual Mortality Rate) Jamie Styles MD on November 17, 2016 at 12:45 Board Certified Radiologist. This report was verified electronically.
== END 2016-11-17 14:25 | disposition home health service (06) ==
LOC: PHED 20:17 → PHEDA 23:17 → PHICU 11-16 01:30 → PH3B 11-16 19:27
PROVIDERS: ADMIT Hospitalist; ATTEND Hospitalist
DX: R55 Syncope and collapse (principal); I10 Essential (primary) hypertension; N17.9 Acute kidney failure, unspecified; R07.89 Other chest pain; F31.9 Bipolar disorder, unspecified; R82.90 Unspecified abnormal findings in urine; F20.9 Schizophrenia, unspecified; F03.90 Unspecified dementia, unspecified severity, without behavioral disturbance, psychotic disturbance, mood disturbance, and anxiety; E86.0 Dehydration; K62.5 Hemorrhage of anus and rectum; R63.4 Abnormal weight loss; R63.0 Anorexia; D72.829 Elevated white blood cell count, unspecified; Z79.82 Long term (current) use of aspirin; Z85.828 Personal history of other malignant neoplasm of skin
CPT/HCPCS: 70450; 71010; 72125; 72170; 73080; 78452; 80048; 80053; 81001; 82550; 82552; 83735; 84484; 85025; 85610; 85730; 87077; 87086; 87186; 93005; 93017; 96365; 97110; 97116; 97163; 99285; A9502; G0378; G8987; G8988; J0696; J2785; J7030; J7040; J7050

== ENCOUNTER 2017-04-11 19:32 | Inpatient (IN) | payer OTHER, MEDICARE ==
[~2017-04-11] VITALS: Ht 160 cm; Wt 83.0 kg
[~2017-04-11 19:32] MED LIST: ASPI81CH25 PO; ATEN25TA PO; CITA20TA4 PO; DONE10TA7 PO; IRBE300T11 PO; MACR100C2 PO
[2017-04-11 21:14] VITALS: BP_SYST 15; BP_SYST 155; BP_DIAS 66; PULSE 83; RESP 18; TEMP 97.9; O2SAT 95
--- NOTE | 2017-04-11 21:44 | PD ---
HPI Chief Complaint: Psychiatric Symptoms Time Seen by Provider: 21:14 Travel History International Travel<30 days: No Contact w/Intl Traveler<30days: No Traveled to known affect area: No History of Present Illness HPI 76-year-old female presents to the emergency Department under [place] act by local police. The patient apparently told the facility that she if she does have to stay there 1 more day, she would kill herself. The patient states that her son took her out to a nice meal in [place]. He then took her back to the facility and she did not know she was supposed to stay there. She states that it is a nice facility, but she wants to be in her house. She states she has wants to live in her house and does not want to live in a nursing facility. The patient states that she would rather than have to live in a nursing facility and she wants to live in her own home. The patient apparently was agitated before coming to the medical pod. However, on my exam, she is calm, cooperative. She has no medical complaints at this time. She only wishes to go home and not back to her nursing facility. She has had history dementia, but answers all questions appropriately. 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, removed) Migraines: No Schizophrenia: Yes Seizures: No Ulcer: Yes Menopausal: Yes Tubal Ligation: Yes Past Surgical History Abdominal Surgery: No AICD: No Arteriovenous Shunt: No Cardiac Surgery: No Ear Surgery: No Endocrine Surgery: No Eye Surgery: No Genitourinary Surgery: No Gynecologic Surgery: No Insulin Pump: No Joint Replacement: No Oral Surgery: No Pacemaker: No Thoracic Surgery: No Social History Alcohol Use: No Tobacco Use: No Substance Use: No Allergies-Medications (Allergen,Severity, Reaction): Coded Allergies: No Known Allergies (Unverified , 11/15/16) Reported Meds & Prescriptions Reported Meds & Active Scripts Active Macrobid (Nitrofurantoin Monoh/Nitrofur Macro) 100 Mg Cap 100 Mg PO BID Reported Aspirin Low Strength (Aspirin) 81 Mg Chew 81 Mg PO HS Atenolol 25 Mg Tab 25 Mg PO HS Citalopram (Citalopram Hydrobromide) 20 Mg Tab 20 Mg PO HS Donepezil 10 Mg Tab 10 Mg PO HS Irbesartan 300 Mg Tab 300 Mg PO DAILY Review of Systems Except as stated in HPI: all other systems reviewed are Neg Physical Exam Narrative GENERAL: Well-nourished, well-developed elderly patient, ambulatory. Afebrile. Patient is alert and oriented to person, place, time. SKIN: Focused skin assessment warm/dry. Patient has ecchymosis noted to bilateral forearms. She has a small skin tear to the right posterior elbow. HEAD: Normocephalic. Atraumatic. EYES: No scleral icterus. No injection or drainage. NECK: Supple, trachea midline. No JVD or lymphadenopathy. CARDIOVASCULAR: Regular rate and rhythm without murmurs, gallops, or rubs. RESPIRATORY: Breath sounds equal bilaterally. No accessory muscle use. Lungs sounds are clear to auscultation. GASTROINTESTINAL: Abdomen soft, non-tender, nondistended. MUSCULOSKELETAL: No cyanosis, or edema. PSYCHIATRIC: No delusional thought processes. No hallucinations. Data Data Last Documented VS Vital Signs Date Time Temp Pulse Resp B/P (MAP) Pulse Ox O2 Delivery O2 Flow Rate FiO2 04/11/17 22:07 98.3 82 18 150/65 (93) 100 Room Air Orders Orders Complete Blood Count With Diff (04/11/17 21:39) Comprehensive Metabolic Panel (04/11/17 21:39) Urinalysis - C+S If Indicated (04/11/17 21:39) Psych Screen (04/11/17 21:39) Diet Heart Healthy (04/12/17 Breakfast) MDM Medical Decision Making Medical Screen Exam Complete: Yes Emergency Medical Condition: Yes Medical Record Reviewed: Yes Differential Diagnosis Dementia versus depression versus anxiety versus electrolyte abnormality versus UTI Narrative Course 76-year-old female presents to the emergency department under [place] act by local police. She states that she wants to live in her home home and does not want to live in a nursing facility. She is calm, cooperative, alert and oriented to person, place, and time during my exam. CBC, CMP, UA are ordered and pending. Labs and UA are pending. Dr. Saxena, my attending physician, will assume care and disposition of patient. Nayeli Ackerman Apr 11, 2017 21:44
[2017-04-11 22:07] VITALS: BP 150/65; PULSE 82; RESP 18; TEMP 98.3; O2SAT 100
[2017-04-11 22:55] LABS: BASOPHIL # 0.1 TH/MM3 (0-0.2); BASOPHIL % 0.3 % (0.0-2.0); HEMATOCRIT 40.2 % (35.0-46.0); HEMO FLAGS DIFF FINAL; LYMPH % 6.7 % (9.0-44.0); LYMPHOCYTE # 1.5 TH/MM3 (1.0-4.8); MEAN CELL VOLUME 92.2 FL (80.0-100.0); MEAN CORPUSCULAR HGB CONC 33.6 % (32.0-36.0); MONO % 5.1 % (0.0-8.0); NEUT % 87.9 % (16.0-70.0); PLATELET COUNT 390 TH/MM3 (150-450); RED BLOOD COUNT 4.36 MIL/MM3 (4.00-5.30); WHITE BLOOD COUNT 22.7 TH/MM3 (4.0-11.0)
[2017-04-11 23:01] LABS: BLOOD, URINE SMALL (NEG); CALCIUM OXALATE CRYSTALS,URINE FEW /hpf; COMMENT (UR) CULT NOT INDICATED; CULTURE IF INDICATED CULT NOT INDICATED; GLUCOSE,URINE NEG (NEG); KETONE, URINE NEG (NEG); MUCUS URINE FEW /lpf (OCC); NITRITE,URINE NEG (NEG); SQUAMOUS EPITHELIAL CELL URINE 1 /hpf (0-5); URINE COLOR YELLOW (YELLW/STRAW)
[2017-04-11 23:17] LABS: ANION GAP 9 MEQ/L (5-15); AST (GOT) 26 U/L (15-37); BICARBONATE 29.5 MEQ/L (21.0-32.0); BLOOD UREA NITROGEN 21 MG/DL (7-18); CHLORIDE 102 MEQ/L (98-107); GLOMERULAR FILTRATION RATE 46 ML/MIN (>89); POTASSIUM 3.7 MEQ/L (3.5-5.1); SODIUM (NA) 140 MEQ/L (136-145)
[2017-04-11 23:18] LABS: ALT (GPT) 32 U/L (10-53)
[2017-04-11 23:20] LABS: ALKALINE PHOSPHATASE 108 U/L (45-117); TOTAL BILIRUBIN ADULT 0.3 MG/DL (0.2-1.0)
--- NOTE | 2017-04-11 23:47 | RADRPT ---
EXAM DATE/TIME: 04/11/2017 23:05 [facility] COMPARISON: CHEST SINGLE AP, November 15, 2016, 21:56. INDICATIONS : Short of breath. MEDICAL HISTORY : Hypertension. SURGICAL HISTORY : Tubal ligation. ENCOUNTER: Initial ACUITY: 1 day PAIN SCORE: 0/10 LOCATION: Bilateral chest FINDINGS: A single view of the chest demonstrates the lungs to be symmetrically aerated without evidence of mas s, infiltrate or effusion. The cardiomediastinal contours are unremarkable. Osseous structures are intact. CONCLUSION: No evidence of acute cardiopulmonary disease. Dario Ron MD on April 11, 2017 at 23:45 Board Certified Radiologist. This report was verified electronically.
--- NOTE | 2017-04-12 01:27 | PD ---
Data Data Last Documented VS Vital Signs Date Time Temp Pulse Resp B/P (MAP) Pulse Ox O2 Delivery O2 Flow Rate FiO2 04/11/17 22:07 98.3 82 18 150/65 (93) 100 Room Air Orders Orders Complete Blood Count With Diff (04/11/17 21:39) Comprehensive Metabolic Panel (04/11/17 21:39) Urinalysis - C+S If Indicated (04/11/17 21:39) Psych Screen (04/11/17 21:39) Diet Heart Healthy (04/12/17 Breakfast) Chest, Single Ap (04/11/17 ) Labs Laboratory Tests Test 04/11/17 21:15 04/11/17 22:00 Urine Color YELLOW Urine Turbidity CLEAR Urine pH 6.0 Urine Specific [place] 1.022 Urine Protein TRACE mg/dL Urine Glucose (UA) NEG mg/dL Urine Ketones NEG mg/dL Urine Occult Blood SMALL Urine Nitrite NEG Urine Bilirubin NEG Urine Urobilinogen LESS THAN 2.0 MG/DL Urine Leukocyte Esterase NEG Urine RBC 12 /hpf Urine WBC 2 /hpf Urine Squamous Epithelial Cells 1 /hpf Urine Calcium Oxalate Crystals FEW /hpf Urine Mucus FEW /lpf Microscopic Urinalysis Comment CULT NOT INDICATED White Blood Count 22.7 TH/MM3 Red Blood Count 4.36 MIL/MM3 Hemoglobin 13.5 GM/DL Hematocrit 40.2 % Mean Corpuscular Volume 92.2 FL Mean Corpuscular Hemoglobin 31.0 PG Mean Corpuscular Hemoglobin Concent 33.6 % Red Cell Distribution Width 13.0 % Platelet Count 390 TH/MM3 Mean Platelet Volume 7.0 FL Neutrophils (%) (Auto) 87.9 % Lymphocytes (%) (Auto) 6.7 % Monocytes (%) (Auto) 5.1 % Eosinophils (%) (Auto) 0.0 % Basophils (%) (Auto) 0.3 % Neutrophils # (Auto) 20.0 TH/MM3 Lymphocytes # (Auto) 1.5 TH/MM3 Monocytes # (Auto) 1.2 TH/MM3 Eosinophils # (Auto) 0.0 TH/MM3 Basophils # (Auto) 0.1 TH/MM3 CBC Comment DIFF FINAL Differential Comment Blood Urea Nitrogen 21 MG/DL Creatinine 1.14 MG/DL Random Glucose 107 MG/DL Total Protein 8.0 GM/DL Albumin 3.7 GM/DL Calcium Level 9.1 MG/DL Alkaline Phosphatase 108 U/L Aspartate Amino Transf (AST/SGOT) 26 U/L Alanine Aminotransferase (ALT/SGPT) 32 U/L Total Bilirubin 0.3 MG/DL Sodium Level 140 MEQ/L Potassium Level 3.7 MEQ/L Chloride Level 102 MEQ/L Carbon Dioxide Level 29.5 MEQ/L Anion Gap 9 MEQ/L Estimat Glomerular Filtration Rate 46 ML/MIN MDM Medical Record Reviewed: Yes Supervised Visit with BRIAN: No Narrative Course During the course of the patients emergency department visit, the patients history, examination, and differential diagnosis were reviewed with the patient. The patient had IV access obtained and blood work sent for analysis. The patient was placed on a night monitor with oximetry and blood pressure monitoring. The patient's case was initially seen by Nayeli, the nurse practitioner. Please see her complete history and physical. The patient was reportedly brought in under a Lemus act. The patient had an essentially normal examination, however the patient's laboratory studies revealed a leukocytosis at 22.7. Nayeli ordered a urinalysis as well as a chest x-ray to evaluate for underlying infection, however she was suspicious that the leukocytosis may be related to a stress response as the patient was agitated prior to arrival. The patients laboratory studies were reviewed and remarkable for a white count of 22.7, hemoglobin 13.5, platelets 390 with 87.9 neutrophils, lymphocytes 6.7, CMP is remarkable for V1 and 21, creatinine 1.14, glucose 107, urinalysis shows small occult blood, 12 RBCs Radiology studies were reviewed and remarkable for a chest x-ray that shows no evidence of acute cardiopulmonary disease. The patient has been medically cleared for evaluation by the psychiatric screener and psychiatrist under a Lemus act. Diagnosis Primary Impression: Depression with suicidal ideation Cherelle Saxena MD Apr 12, 2017 01:27
[2017-04-12 11:25] VITALS: BP 156/72; PULSE 75; RESP 20
[2017-04-12] MEDS ORDERED: NAME10TA PO (11:30)
[2017-04-12] MEDS ORDERED: ALUMINUM/MAGNESIUM/SIMETH 30 ML CUP PO PRN (12:15)
[2017-04-12] MEDS ORDERED: ACETAMINOPHEN 325 MG TAB PO PRN (12:15)
[2017-04-12] MEDS ORDERED: MAGNESIUM HYDROXIDE SUSP 30 ML CUP PO PRN (12:15)
[2017-04-12] MEDS ORDERED: LORazepam 1 MG TAB PO PRN (12:15)
--- NOTE | 2017-04-12 12:27 | HHI.HP ---
Provisional Diagnosis Admission Date [place] I. Dementia with behavioral disturbance Certification of Person's Competence To Provide Express and Informed Consent I have personally examined Sofia Stafford , a person being served at [facility] on, Apr 12, 2017 12:16. Express and informed consent means consent voluntarily given in writing, by a competent person, after sufficient explanation and disclosure of the subject matter involved to enable the person to make a knowing and willful decision without any element of force, fraud, deceit, duress, or other form of constraint or coercion. This person is 18 years of age or older, is not now known to be incompetent to consent to treatment with a guardian advocate, and does not have a health care surrogate or proxy currently making medical treatment decisions. I have found this person to be one of the following: [x] Competent to provide express and informed consent, as defined above, for voluntary admission to this facility and is competent to provide express and informed consent for treatment. He/she has the consistent capacity to make well reasoned, willful, and knowing decisions concerning his or her medical or mental health treatment. The person fully and consistently understands the purpose of the admission for examination/placement and is fully capable of personally exercising all rights [place] Incompetent to provide express and informed consent to voluntary admission, and this is incompetent to provide express and informed consent to treatment. The person must be transferred to involuntary status and a petition for a guardian advocate filed with the Circuit Court. [] Refusing to provide express and informed consent to voluntary admission but is competent to provide express and informed consent for treatment. The person must be discharged or transferred to involuntary status. Form shall be completed within 24 hours of a person's arrival at the receiving facility and filed in the clinical record of each person: 1. Admitted on a voluntary basis 2. Permitted to provide express and informed consent to his/her own treatment 3. Allowed to transfer from involuntary to voluntary status 4. Prior to permitting a person to consent to his or her own treatment after having been previously found incompetent to consent to treatment. History of Present Illness Capacity: Has Capacity HPI 76-year-old female being admitted under a Lemus act for suicidal threats and aggressive behavior. Apparently the patient was Lemus acted by law enforcement after she was behaving in a suicidal manner, threatening to kill herself if she was asked to stay at her current detention facility. The patient wants to go home and live independently but apparently her children believe that is not reasonably possible. The patient is described on the Lemus act as having bipolar disorder as well as moderate dementia. This physician notes the patient is highly irritable and unable to sit still. Furthermore, the patient required restraints last night in the emergency department due to her agitation and physical aggression towards staff members. Upon interview, the patient continues to report she would rather kill herself than live at the current facility. She has stated this facility is "nice" but she wants to live at home. Nursing reports indicate her children cannot manage or help her enough for her to live at home. Additionally, the patient does have symptoms of dementia, including short term memory loss, disorientation intermittently, impaired judgment and impulsivity. She denies any recent or remote abuse of alcohol or drugs. Review of Systems Except as stated in HPI: all other systems reviewed are Neg Past Psych History Psychological trauma history Denied by patient. Violence risk - others (6 mos) High. The patient has already been physically aggressive with emergency department staff. Violence risk - self (6 mos) High. Patient continues to threaten to harm herself, including to this physician. Substance Abuse History Drugs/Alcohol past 12 months Denied Past Family Social History Coded Allergies: No Known Allergies (Unverified , 04/12/17) Per information sent from facility. Patient admitted to [place], [place] on 04/09/2017. Reported Medications Memantine (Namenda) 10 Mg Tab, 10 MG PO DAILY for Alzheimer Disease, #30 TAB 0 Refills 04/12/17 Aspirin (Aspirin Low Strength) 81 Mg Chew, 81 MG PO HS, TAB 11/15/16 Atenolol (Atenolol) 25 Mg Tab, 25 MG PO HS for Blood Pressure Management, #30 TAB 11/15/16 Citalopram (Citalopram) 20 Mg Tab, 20 MG PO HS for Control Depression, #30 TAB 0 Refills 11/15/16 Donepezil (Donepezil) 10 Mg Tab, 10 MG PO HS for Dementia, #30 TAB 0 Refills 11/15/16 Irbesartan (Irbesartan) 300 Mg Tab, 300 MG PO DAILY for Blood Pressure Management, #30 TAB 0 Refills 11/15/16 Discontinued Scripts Nitrofurantoin Monohydrate Macrocrystals (Macrobid) 100 Mg Cap, 100 MG PO BID for Infection, #10 CAP 0 Refills Prov:Teena Corea MD 11/17/16 Family History Positive for mood and anxiety disorders. Social History in 2011. Since that time the patient's emotional instability has come more problematic. She has grown depressed and irritable. Her cognitive problems have increased although she is on 2 medications for dementia. She does not have a history of alcoholism or substance abuse. She does have supportive children. She is retired from work. Patient's Strengths (min. 2) Resilient and has access to healthcare. Physical Exam GENERAL: SKIN: Warm and dry. HEAD: Normocephalic. EYES: No scleral icterus. No injection or drainage. NECK: Supple, trachea midline. No JVD or lymphadenopathy. CARDIOVASCULAR: Regular rate and rhythm without murmurs, gallops, or rubs. RESPIRATORY: Breath sounds equal bilaterally. No accessory muscle use. GASTROINTESTINAL: Abdomen soft, non-tender, nondistended. MUSCULOSKELETAL: No cyanosis, or edema. BACK: Nontender without obvious deformity. No CVA tenderness. Vital Signs Vital Signs Date Time Temp Pulse Resp B/P (MAP) Pulse Ox O2 Delivery O2 Flow Rate FiO2 04/11/17 22:07 98.3 82 18 150/65 (93) 100 Room Air Lab Results Test 04/11/17 21:15 04/11/17 22:00 Urine Color YELLOW Urine Turbidity CLEAR Urine pH 6.0 Urine Specific [place] 1.022 Urine Protein TRACE mg/dL Urine Glucose (UA) NEG mg/dL Urine Ketones NEG mg/dL Urine Occult Blood SMALL Urine Nitrite NEG Urine Bilirubin NEG Urine Urobilinogen LESS THAN 2.0 MG/DL Urine Leukocyte Esterase NEG Urine RBC 12 /hpf Urine WBC 2 /hpf Urine Squamous Epithelial Cells 1 /hpf Urine Calcium Oxalate Crystals FEW /hpf Urine Mucus FEW /lpf Microscopic Urinalysis Comment CULT NOT INDICATED White Blood Count 22.7 TH/MM3 Red Blood Count 4.36 MIL/MM3 Hemoglobin 13.5 GM/DL Hematocrit 40.2 % Mean Corpuscular Volume 92.2 FL Mean Corpuscular Hemoglobin 31.0 PG Mean Corpuscular Hemoglobin Concent 33.6 % Red Cell Distribution Width 13.0 % Platelet Count 390 TH/MM3 Mean Platelet Volume 7.0 FL Neutrophils (%) (Auto) 87.9 % Lymphocytes (%) (Auto) 6.7 % Monocytes (%) (Auto) 5.1 % Eosinophils (%) (Auto) 0.0 % Basophils (%) (Auto) 0.3 % Neutrophils # (Auto) 20.0 TH/MM3 Lymphocytes # (Auto) 1.5 TH/MM3 Monocytes # (Auto) 1.2 TH/MM3 Eosinophils # (Auto) 0.0 TH/MM3 Basophils # (Auto) 0.1 TH/MM3 CBC Comment DIFF FINAL Differential Comment Blood Urea Nitrogen 21 MG/DL Creatinine 1.14 MG/DL Random Glucose 107 MG/DL Total Protein 8.0 GM/DL Albumin 3.7 GM/DL Calcium Level 9.1 MG/DL Alkaline Phosphatase 108 U/L Aspartate Amino Transf (AST/SGOT) 26 U/L Alanine Aminotransferase (ALT/SGPT) 32 U/L Total Bilirubin 0.3 MG/DL Sodium Level 140 MEQ/L Potassium Level 3.7 MEQ/L Chloride Level 102 MEQ/L Carbon Dioxide Level 29.5 MEQ/L Anion Gap 9 MEQ/L Estimat Glomerular Filtration Rate 46 ML/MIN Mental Status Examination Speech: Rapid Orientation: Person, Place Memory: Impaired (describe) Thought Process: Circumstantial, Goal Directed Thought Content: Bizarre thinking Hallucination Type: None Attention and Concentration: Abnormal Suicidal Ideation: Yes Previous Suicide Attempts: No Homicidal Ideation: Yes Previous Homicide Attempts: No Insight: Fair Judgment: Impulsive Affect: Irritable Mood: Irritable Motor Activity: Normal gait Assessment & Plan Problem List: (1) Alzheimer's dementia with behavioral disturbance ICD Codes: G30.8 - Other Alzheimer's disease; F02.81 - Dementia in other diseases classified elsewhere with behavioral disturbance (2) Dementia with behavioral disturbance ICD Codes: F03.91 - Unspecified dementia with behavioral disturbance Assessment & Plan Estimated LOS: days 76-year-old female with mild to moderate dementia, threatening to commit suicide and physically aggressive with emergency department staff. This physician feels the patient is at high risk for harm to self and others and she is therefore being admitted for evaluation and treatment. This physician has ordered a CBC and comprehensive metabolic panel to determine if any infectious process or metabolic process is causing or contributing to her confusion and agitation. Additionally, this physician has ordered a thyroid -stimulating hormone level, vitamin B-12 level and vitamin D level to determine if any deficiencies in these areas are causing or contributing to the patient's cognitive deficits, depression or behavioral dyscontrol. This physician has also ordered an EKG to determine the patient's cardiac conduction status prior to manipulating any psychotropic medicines which might adversely affect her heart. This physician has ordered a hospitalist consult to address the patient' s history of hypertension and any other medical concerns. This physician has requested an occupational therapy consult to determine the patient's functionality. Patient's nurse was questioned regarding the patient's recent behavior in the emergency department. This physician will also ask case management to become involved to assist with information gathering and appropriate disposition planning. Spencer Villarreal MD Apr 12, 2017 12:27
--- NOTE | 2017-04-12 13:20 | PD.CONS ---
HPI Service [facility] Consult Requested By Reason for Consult medical management Primary Care Physician Unknown Diagnoses: History of Present Illness patient is a 76 y/o female with history of dementia, schizophrenia and hypertension who was brought to ER under a garcía act due to aggressive behavior and suicidal ideation. at the time of my evaluation she was resting comfortably with no chest pain, sob, abdominal pain, urinary complaints, cough or sputum production. she says that ' I just want to go home'. there's no reported fever. Review of Systems Constitutional: DENIES: Fever, Weight loss, Chills, Night Sweats Eyes: DENIES: Blurred vision, Diplopia, Vision loss, Double Vision Ears, nose, mouth, throat: DENIES: Tinnitus, Vertigo, Throat pain, Epistaxis Respiratory: DENIES: Apneas, Cough, Snoring, Wheezing, Hemoptysis, Sputum production, Shortness of breath Cardiovascular: DENIES: Chest pain, Palpitations, Syncope, Dyspnea on Exertion , PND, Lower Extremity Edema, Orthopnea, Claudication Gastrointestinal: DENIES: Abdominal pain, Black stools, Bloody stools, Constipation, Diarrhea, Nausea, Vomiting, Difficulty Swallowing, Anorexia Genitourinary: DENIES: Urinary frequency, Urgency, Hematuria, Dysuria Musculoskeletal: DENIES: Joint pain, Muscle aches, Stiffness, Joint Swelling Integumentary: DENIES: Rash Neurologic: DENIES: Abnormal gait, Headache, Localized weakness, Paresthesias, Seizures, Speech Problems, Tremor, Poor Balance Psychiatric: COMPLAINS OF: Agitation, Suicidal Ideation, DENIES: Anxiety, Confusion, Mood changes, Depression, Hallucinations, Homicidal Ideation, Delusions Past Family Social History Allergies: Coded Allergies: No Known Allergies (Unverified , 04/12/17) Per information sent from facility. Patient admitted to [place], [place] on 04/09/2017. Past Medical History dementia schizophrenia hypertension Past Surgical History tubal ligation Reported Medications Aspirin Low Strength (Aspirin) 81 Mg Chew 81 Mg PO HS Atenolol 25 Mg Tab 25 Mg PO HS Citalopram (Citalopram Hydrobromide) 20 Mg Tab 20 Mg PO HS Donepezil 10 Mg Tab 10 Mg PO HS Irbesartan 300 Mg Tab 300 Mg PO DAILY Active Ordered Medications Current Medications Lorazepam (Ativan) 1 mg Q6H PRN PO MODERATE TO SEVERE ANXIETY; Start 04/12/17 at 12:15; Status UNV Lorazepam (Ativan Inj) 1 mg Q6H PRN IM MODERATE TO SEVERE ANXIETY; Start at 12:15; Status UNV Acetaminophen (Tylenol) 650 mg Q4H PRN PO Pain 1-5 or Temp >101F; Start at 12:15; Status UNV Magnesium Hydroxide (Milk Of Magnesia Liq) 30 ml DAILY PRN PO CONSTIPATION; Start 04/12/17 at 12:15; Status UNV Al Hydrox/Mg Hydrox/Simethicone (Mag-Al Plus Susp Liq) 30 ml Q6H PRN PO DYSPEPSIA; Start 04/12/17 at 12:15; Status UNV Aspirin (Aspirin Chew) 81 mg HS PO ; Start 04/12/17 at 21:00; Status UNV Atenolol (Tenormin) 25 mg HS PO ; Start 04/12/17 at 21:00; Status UNV Donepezil HCl (Aricept) 10 mg HS PO ; Start 04/12/17 at 21:00; Status UNV Memantine (Namenda) 10 mg DAILY PO ; Start 04/13/17 at 09:00; Status UNV Non-Formulary Medication 300 mg DAILY PO ; Start 04/13/17 at 09:00; Status UNV Social History no smoking or drinking. Physical Exam Vital Signs Vital Signs Date Time Temp Pulse Resp B/P (MAP) Pulse Ox O2 Delivery O2 Flow Rate FiO2 04/12/17 11:25 75 20 156/72 (100) 04/11/17 22:07 98.3 82 18 150/65 (93) 100 Room Air 04/11/17 21:14 97.9 83 18 155/66 (95) 95 Physical Exam GENERAL: This is a well-nourished, well-developed patient, in no apparent distress. SKIN: No rashes, ecchymoses or lesions. Cool and dry. HEAD: Atraumatic. Normocephalic. No temporal or scalp tenderness. EYES: Pupils equal round and reactive. Extraocular motions intact. No scleral icterus. No injection or drainage. ENT: Nose without bleeding, purulent drainage or septal hematoma. Throat without erythema, tonsillar hypertrophy or exudate. Uvula midline. Airway patent. NECK: Trachea midline. No JVD or lymphadenopathy. Supple, nontender, no meningeal signs. CARDIOVASCULAR: Regular rate and rhythm without murmurs, gallops, or rubs. RESPIRATORY: Clear to auscultation. Breath sounds equal bilaterally. No wheezes , rales, or rhonchi. GASTROINTESTINAL: Abdomen soft, non-tender, nondistended. No hepato-splenomegaly , or palpable masses. No guarding. MUSCULOSKELETAL: Extremities without clubbing, cyanosis, or edema. No joint tenderness, effusion, or edema noted. No calf tenderness. Negative Homans sign bilaterally. NEUROLOGICAL: elderly female, in no distress Laboratory Laboratory Tests Test 04/11/17 21:15 04/11/17 22:00 Urine Color YELLOW Urine Turbidity CLEAR Urine pH 6.0 Urine Specific [place] 1.022 Urine Protein TRACE Urine Glucose (UA) NEG Urine Ketones NEG Urine Occult Blood SMALL Urine Nitrite NEG Urine Bilirubin NEG Urine Urobilinogen LESS THAN 2.0 Urine Leukocyte Esterase NEG Urine RBC 12 Urine WBC 2 Urine Squamous Epithelial Cells 1 Urine Calcium Oxalate Crystals FEW Urine Mucus FEW Microscopic Urinalysis Comment CULT NOT INDICATED White Blood Count 22.7 Red Blood Count 4.36 Hemoglobin 13.5 Hematocrit 40.2 Mean Corpuscular Volume 92.2 Mean Corpuscular Hemoglobin 31.0 Mean Corpuscular Hemoglobin Concent 33.6 Red Cell Distribution Width 13.0 Platelet Count 390 Mean Platelet Volume 7.0 Neutrophils (%) (Auto) 87.9 Lymphocytes (%) (Auto) 6.7 Monocytes (%) (Auto) 5.1 Eosinophils (%) (Auto) 0.0 Basophils (%) (Auto) 0.3 Neutrophils # (Auto) 20.0 Lymphocytes # (Auto) 1.5 Monocytes # (Auto) 1.2 Eosinophils # (Auto) 0.0 Basophils # (Auto) 0.1 CBC Comment DIFF FINAL Differential Comment Blood Urea Nitrogen 21 Creatinine 1.14 Random Glucose 107 Total Protein 8.0 Albumin 3.7 Calcium Level 9.1 Alkaline Phosphatase 108 Aspartate Amino Transf (AST/SGOT) 26 Alanine Aminotransferase (ALT/SGPT) 32 Total Bilirubin 0.3 Sodium Level 140 Potassium Level 3.7 Chloride Level 102 Carbon Dioxide Level 29.5 Anion Gap 9 Estimat Glomerular Filtration Rate 46 Result Diagram: 04/11/17219904/11/172199 Imaging Last Impressions Chest X-Ray 04/11/17 0000 Signed Impressions: Service Date/Time: Tuesday, April 11, 2017 23:05 - CONCLUSION: No evidence of acute cardiopulmonary disease. Dario Ron MD Assessment and Plan Assessment and Plan A/P - dementia with aggressive behavior and suicidal ideation management per psych. -leukocytosis- reactive?- no fever- CXR and UA negative- will monitor temps- repeat CBC in am. -hypertension; resume home meds. thank you for the consult. Discussed Condition With the patient. Enrique Hurley MD Apr 12, 2017 13:20
[2017-04-12 14:25] VITALS: BP 165/75; PULSE 62; RESP 16; O2SAT 99
[2017-04-12] MEDS ORDERED: diphenhydrAMINE HCL 50 MG/ML VIAL IM ONE (15:45)
[2017-04-12] MEDS ORDERED: ZIPRASIDONE MESYLATE 20 MG VIAL IM ONE (15:45)
[2017-04-12] MEDS: DONEPEZIL HCL 5 MG TAB PO SCH (21:08)
[2017-04-12] MEDS: ASPIRIN 81 MG CHEW TAB PO SCH (21:09)
[2017-04-12] MEDS: ATENOLOL 25 MG TAB PO SCH (21:09)
[2017-04-13 06:00] VITALS: BP 105/49; PULSE 65; RESP 16; TEMP 97.9; O2SAT 95
[2017-04-13] MEDS ORDERED: hydrOXYzine HCL 50 MG TAB PO PRN (09:45)
[2017-04-13] MEDS ORDERED: ALUMINUM/MAGNESIUM/SIMETH 30 ML CUP PO PRN (09:45)
[2017-04-13] MEDS ORDERED: MAGNESIUM HYDROXIDE SUSP 30 ML CUP PO PRN (09:45)
[2017-04-13] MEDS ORDERED: ACETAMINOPHEN 325 MG TAB PO PRN (09:45)
--- NOTE | 2017-04-13 09:57 | HHI.PYPN ---
Subjective Remarks Patient seen in her room with nurse Carley counselor pro re lisset. calm and pleasant with me laying flat on her back in bed. With fair eye contact. She is superficially alert oriented to [facility]. That is 2016 and April. She states she lives by herself. That a number of years ago. She does not know why she is here she states she is brought from her home. Otherwise patient very vague about any past history. Though she denies suicidality homicidality voices or visions. Patient initially seen by Dr. Palmer. We did the initial H&P. I completed the psychiatric template. Also review the medication reconciliation. Counselor has talked to patient's son who is been toddler teacher for this lady. It appears she has a long history mental illness going back a number of years the mood lability and aggressive behavior the point of pulmonary done through her 's head. It appears the diagnoses range from bipolar to schizoaffective disorder. Patient was out of control at home to the point with Son , Rad[facility] where she lasted less than 3 hours due to her [id number] behavior. Necessitating the Lemus act leading to this hospitalization. All Dr. Villarreal felt that she have capacity, I feel after my examination and cleaning ancillary information from family that she does not have capacity to make decisions concerning her care or medication thus I am continuing the Lemus act I 'll do first opinion requests second opinion petition supporting Lemus act. We will also ask for healthcare surrogate and guardian advocate. Patient did needed ETO Geodon and Ativan yesterday. Which may explain her calm behavior at this time. At this time will not order any specific psychotropics mute further observe her to see if there is any behaviors that will occur later today. There also may be issues related to placement. Patient son is power of attorney lawyer. Though it appears she may wish to share health care surrogate responsibilities with his siblings Review of Systems Constitutional: DENIES: Diaphoretic episodes, Fatigue, Fever, Weight gain, Weight loss, Chills, Dizziness, Change in appetite, Night Sweats Endocrine: DENIES: Abnorml menstrual pattern, Heat/cold intolerance, Polydipsia , Polyuria, Polyphagia Eyes: DENIES: Blurred vision, Diplopia, Eye inflammation, Eye pain, Vision loss , Photosensitivity, Double Vision Ears, nose, mouth, throat: DENIES: Tinnitus, Hearing loss, Vertigo, Nasal discharge, Oral lesions, Throat pain, Hoarseness, Ear Pain, Running Nose, Epistaxis, Sinus Pain, Toothache, Odynophagia Respiratory: DENIES: Apneas, Cough, Snoring, Wheezing, Hemoptysis, Sputum production, Shortness of breath Cardiovascular: DENIES: Chest pain, Palpitations, Syncope, Dyspnea on Exertion , PND, Lower Extremity Edema, Orthopnea, Claudication Gastrointestinal: DENIES: Abdominal pain, Black stools, Bloody stools, Constipation, Diarrhea, Nausea, Vomiting, Difficulty Swallowing, Anorexia Genitourinary: DENIES: Abnormal vaginal bleeding, Dysmenorrhea, Dyspareunia, Sexual dysfunction, Urinary frequency, Urinary incontinence, Urgency, Hematuria , Dysuria, Nocturia, Vaginal discharge Musculoskeletal: DENIES: Joint pain, Muscle aches, Stiffness, Joint Swelling, Back pain, Neck pain Integumentary: DENIES: Abnormal pigmentation, Pruritus, Rash, Nail changes, Breast masses, Breast skin changes, Nipple discharge Hematologic/lymphatic: DENIES: Bruising, Lymphadenopathy Immunologic/allergic: DENIES: Eczema, Urticaria Neurologic: DENIES: Abnormal gait, Headache, Localized weakness, Paresthesias, Seizures, Speech Problems, Tremor, Poor Balance Psychiatric: COMPLAINS OF: Confusion (mild), Agitation (mild), Suicidal Ideation (made vague statements) Objective Alert: Yes [place]: Person, Place, Date, Situation Mood: Calm Affect: Other (good range and intensity) Memory Intact: Comment (or) Hallucinations: Other (denies) Delusions: No Delusion Type: Other (vigilant) Suicidal: Ideation (denies this time the made suicidal statements ) Homicidal: Ideation (denies) Insight/Judgment Poor Vitals/IOs Vital Signs Date Time Temp Pulse Resp B/P (MAP) Pulse Ox O2 Delivery O2 Flow Rate FiO2 04/13/17 06:00 97.9 65 16 105/49 (67) 95 04/11/17 22:07 Room Air Assessment & Plan Problem List: (1) Alzheimer's dementia with behavioral disturbance ICD Codes: G30.8 - Other Alzheimer's disease; F02.81 - Dementia in other diseases classified elsewhere with behavioral disturbance (2) Dementia with behavioral disturbance ICD Codes: F03.91 - Unspecified dementia with behavioral disturbance Assessment & Plan Estimated LOS: days patient showing the superficial orientation calm this there appears to be a long history of mental illness with mood swings and aggressive hospital behaviors. With a failure placement at a local jail [facility] that lasted 3 hours. Patient did receive an ETO issue afternoon for out-of -control behaviors in the ED For now continue observation Justification for Cont. Inpt. At this time patient decompensate with placed a lower level of care Discharge Planning To be determined Request HC Surrog/Guard Advoc?: Yes Dario Okeefe MD Apr 13, 2017 09:57
[2017-04-13] MEDS: LOSARTAN 50 MG TAB PO SCH (10:01)
[2017-04-13] MEDS: MEMANTINE HCL 10 MG TAB PO SCH (10:01)
[2017-04-13 11:10] LABS: BASOPHIL # 0.1 TH/MM3 (0-0.2); BASOPHIL % 0.9 % (0.0-2.0); EOSINOPHIL # 0.1 TH/MM3 (0-0.4); HEMATOCRIT 38.7 % (35.0-46.0); HEMO FLAGS DIFF FINAL; LYMPH % 20.3 % (9.0-44.0); LYMPHOCYTE # 2.6 TH/MM3 (1.0-4.8); MEAN CORPUSCULAR HEMOGLOBIN 31.5 PG (27.0-34.0); MEAN CORPUSCULAR HGB CONC 33.9 % (32.0-36.0); MONO % 7.5 % (0.0-8.0); NEUT % 70.3 % (16.0-70.0); PLATELET COUNT 316 TH/MM3 (150-450); RED BLOOD COUNT 4.17 MIL/MM3 (4.00-5.30); RED CELL DISTRIBUTION WIDTH 13.2 % (11.6-17.2); WHITE BLOOD COUNT 12.7 TH/MM3 (4.0-11.0)
[2017-04-13 11:18] LABS: ANION GAP 7 MEQ/L (5-15); AST (GOT) 33 U/L (15-37); BICARBONATE 26.7 MEQ/L (21.0-32.0); BLOOD UREA NITROGEN 21 MG/DL (7-18); CHLORIDE 104 MEQ/L (98-107); GLOMERULAR FILTRATION RATE 52 ML/MIN (>89); POTASSIUM 3.9 MEQ/L (3.5-5.1); SODIUM (NA) 138 MEQ/L (136-145)
[2017-04-13 11:20] LABS: ALT (GPT) 29 U/L (10-53)
[2017-04-13 11:45] LABS: ALKALINE PHOSPHATASE 96 U/L (45-117); HDL CHOLESTEROL 56.4 MG/DL (40.0-60.0); LDL CHOLESTEROL 63 MG/DL (0-99); TOTAL BILIRUBIN ADULT 0.6 MG/DL (0.2-1.0)
--- NOTE | 2017-04-13 11:48 | HHI.PR ---
Subjective Remarks is comfortable with no distress. afebrile. d/w the RN and no acute issues over night. Objective Vitals Vital Signs Date Time Temp Pulse Resp B/P (MAP) Pulse Ox O2 Delivery O2 Flow Rate FiO2 04/13/17 06:00 97.9 65 16 105/49 (67) 95 04/12/17 15:00 04/12/17 14:25 62 16 165/75 (105) 99 I/O 04/12/17 04/12/17 04/12/17 04/13/17 04/13/17 04/13/17 07:00 15:00 23:00 07:00 15:00 23:00 Intake Total 100 ml 360 ml Balance 100 ml 360 ml Intake Oral 100 ml 360 ml Result Diagram: 04/13/17 1025 04/13/17 1025 Imaging Last Impressions Chest X-Ray 04/11/17 0000 Signed Impressions: Service Date/Time: Tuesday, April 11, 2017 23:05 - CONCLUSION: No evidence of acute cardiopulmonary disease. Dario Ron MD Objective Remarks GENERAL: This is a well-nourished, well-developed patient, in no apparent distress. CARDIOVASCULAR: Regular rate and regular rhythm without murmurs, gallops, or rubs. RESPIRATORY: Clear to auscultation. Breath sounds equal bilaterally. No wheezes , rales, or rhonchi. GASTROINTESTINAL: Abdomen soft, non-tender, nondistended. Normal, active bowel sounds MUSCULOSKELETAL: Extremities without clubbing, cyanosis, or edema. NEURO: Alert & Oriented x4 to person, place, time, situation. Moves all ext x4 Medications and IVs Current Medications Lorazepam (Ativan) 1 mg Q6H PRN PO MODERATE TO SEVERE ANXIETY; Start 04/12/17 at 12:15 Lorazepam (Ativan Inj) 1 mg Q6H PRN IM MODERATE TO SEVERE ANXIETY; Start at 12:15 Acetaminophen (Tylenol) 650 mg Q4H PRN PO Pain 1-5 or Temp >101F; Start at 12:15 Magnesium Hydroxide (Milk Of Magnesia Liq) 30 ml DAILY PRN PO CONSTIPATION; Start 04/12/17 at 12:15 Al Hydrox/Mg Hydrox/Simethicone (Mag-Al Plus Susp Liq) 30 ml Q6H PRN PO DYSPEPSIA; Start 04/12/17 at 12:15 Aspirin (Aspirin Chew) 81 mg HS PO Last administered on 04/12/17 21:09; Start 04/12/17 at 21:00 Atenolol (Tenormin) 25 mg HS PO Last administered on 04/12/17 21:09; Start at 21:00 Donepezil HCl (Aricept) 10 mg HS PO Last administered on 04/12/17 21:08; Start 04/12/17 at 21:00 Memantine (Namenda) 10 mg DAILY PO Last administered on 04/13/17 10:01; Start 04/13/17 at 09:00 Losartan Potassium (Cozaar) 100 mg DAILY PO Last administered on 04/13/17 10: 01; Start 04/13/17 at 09:00 Ziprasidone (Geodon Inj) 10 mg ONCE ONCE IM Last administered on 04/12/17 15: 45; Start 04/12/17 at 15:45; Stop 04/12/17 at 15:46; Status DC Diphenhydramine HCl (Benadryl Inj) 25 mg ONCE ONCE IM Last administered on 15:45; Start 04/12/17 at 15:45; Stop 04/12/17 at 15:46; Status DC Diphenhydramine HCl (Benadryl) 50 mg HS PRN PO INSOMNIA; Start 04/13/17 at 09: 45 Acetaminophen (Tylenol) 650 mg Q4H PRN PO Pain 1-5 or Temp >101F; Start at 09:45; Stop 04/13/17 at 09:58; Status DC Magnesium Hydroxide (Milk Of Magnesia Liq) 30 ml DAILY PRN PO CONSTIPATION; Start 04/13/17 at 09:45; Stop 04/13/17 at 09:58; Status DC Al Hydrox/Mg Hydrox/Simethicone (Mag-Al Plus Susp Liq) 30 ml Q6H PRN PO DYSPEPSIA; Start 04/13/17 at 09:45; Stop 04/13/17 at 09:58; Status DC Hydroxyzine HCl (Atarax) 50 mg Q6H PRN PO ANXIETY; Start 04/13/17 at 09:45 A/P Assessment and Plan - dementia with aggressive behavior and suicidal ideation management per psych. -leukocytosis- reactive?- no fever- CXR and UA negative- improved. -hypertension; resumed home meds. [facility] will sign off and see her as needed. d/w the RN. Enrique Hurley MD Apr 13, 2017 11:48
--- NOTE | 2017-04-13 14:06 | EKG ---
Date Performed: 04/13/2017 Time Performed: 09:45:20 PTAGE: 76 years EKG: Sinus rhythm NONSPECIFIC T-WAVE ABNORMALITY BORDERLINE ECG PREVIOUS TRACING : 11/15/2016 23.49 DOCTOR: Uli Mcmahon Interpretating Date/Time 04/13/2017 14:05:26
--- NOTE | 2017-04-13 15:00 | PD.PSY.CON ---
Provisional Diagnosis Admission Date Apr 12, 2017 at 12:12 [place]. Dementia with behavioral disturbance History of Present Illness Service Psychiatry Consult Requested By Reason for Consult Second opinion Primary Care Physician Unknown HPI 76-year-old female being admitted under a Lemus act for suicidal threats and aggressive behavior. Apparently the patient was Lemus acted by law enforcement after she was behaving in a suicidal manner, threatening to kill herself if she was asked to stay at her current intermediate facility. The patient wants to go home and live independently but apparently her children believe that is not reasonably possible. The patient is described on the Lemus act as having bipolar disorder as well as moderate dementia. This physician notes the patient is highly irritable and unable to sit still. Furthermore, the patient required restraints last night in the emergency department due to her agitation and physical aggression towards staff members.Upon interview, the patient continues to report she would rather kill herself than live at the current facility. She has stated this facility is "nice" but she wants to live at home. Nursing reports indicate her children cannot manage or help her enough for her to live at home. Additionally, the patient does have symptoms of dementia, including short term memory loss, disorientation intermittently, impaired judgment and impulsivity. She denies any recent or remote abuse of alcohol or drugs. Patient is a 76 years old woman, domiciled alone in [place], , mother of 3 kids, with psychotic history of dementia, who was Lemus acted due to aggressive behavior, suicidal ideation. Patient was seen today, she is in her bed, oppositional and reluctant to provide information. She says that she is not discharged back home "I am not going to eat any mote and I am not going to leave my bed". Review of Systems ROS Limitations: Uncooperative Constitutional: DENIES: Diaphoretic episodes, Fatigue, Fever, Weight gain, Weight loss, Chills, Dizziness, Change in appetite, Night Sweats Past Family Social History Coded Allergies: No Known Allergies (Unverified , 04/12/17) Per information sent from facility. Patient admitted to [place], [place] on 04/09/2017. Reported Medications Memantine (Namenda) 10 Mg Tab, 10 MG PO DAILY for Alzheimer Disease, #30 TAB 0 Refills 04/12/17 Aspirin (Aspirin Low Strength) 81 Mg Chew, 81 MG PO HS, TAB 11/15/16 Atenolol (Atenolol) 25 Mg Tab, 25 MG PO HS for Blood Pressure Management, #30 TAB 11/15/16 Citalopram (Citalopram) 20 Mg Tab, 20 MG PO HS for Control Depression, #30 TAB 0 Refills 11/15/16 Donepezil (Donepezil) 10 Mg Tab, 10 MG PO HS for Dementia, #30 TAB 0 Refills 11/15/16 Irbesartan (Irbesartan) 300 Mg Tab, 300 MG PO DAILY for Blood Pressure Management, #30 TAB 0 Refills 11/15/16 Discontinued Scripts Nitrofurantoin Monohydrate Macrocrystals (Macrobid) 100 Mg Cap, 100 MG PO BID for Infection, #10 CAP 0 Refills Prov:Teena Corea MD 11/17/16 Current Medications Medications (Trade) Dose Ordered Sig/Fidel Route Start Time Stop Time Status Last Admin (Ativan) 1 mg Q6H PRN PO 04/12/17 12:15 (Ativan Inj) 1 mg Q6H PRN IM 04/12/17 12:15 (Tylenol) 650 mg Q4H PRN PO 04/12/17 12:15 (Milk Of Magnesia Liq) 30 ml DAILY PRN PO 04/12/17 12:15 (Mag-Al Plus Susp Liq) 30 ml Q6H PRN PO 04/12/17 12:15 (Aspirin Chew) 81 mg HS PO 04/12/17 21:00 04/12/17 21:09 (Tenormin) 25 mg HS PO 04/12/17 21:00 04/12/17 21:09 (Aricept) 10 mg HS PO 04/12/17 21:00 04/12/17 21:08 (Namenda) 10 mg DAILY PO 04/13/17 09:00 04/13/17 10:01 (Cozaar) 100 mg DAILY PO 04/13/17 09:00 04/13/17 10:01 (Benadryl) 50 mg HS PRN PO 04/13/17 09:45 (Atarax) 50 mg Q6H PRN PO 04/13/17 09:45 Patient's Strengths (min. 2) Resilient and has access to healthcare. Physical Exam Vital Signs Vital Signs Date Time Temp Pulse Resp B/P (MAP) Pulse Ox O2 Delivery O2 Flow Rate FiO2 04/13/17 06:00 97.9 65 16 105/49 (67) 95 04/11/17 22:07 Room Air I/O 04/13/17 04/13/17 04/14/17 08:00 16:00 00:00 Intake Total 360 ml 360 ml Balance 360 ml 360 ml Lab Results Test 04/13/17 10:25 White Blood Count 12.7 TH/MM3 Red Blood Count 4.17 MIL/MM3 Hemoglobin 13.1 GM/DL Hematocrit 38.7 % Mean Corpuscular Volume 93.0 FL Mean Corpuscular Hemoglobin 31.5 PG Mean Corpuscular Hemoglobin Concent 33.9 % Red Cell Distribution Width 13.2 % Platelet Count 316 TH/MM3 Mean Platelet Volume 7.3 FL Neutrophils (%) (Auto) 70.3 % Lymphocytes (%) (Auto) 20.3 % Monocytes (%) (Auto) 7.5 % Eosinophils (%) (Auto) 1.0 % Basophils (%) (Auto) 0.9 % Neutrophils # (Auto) 9.0 TH/MM3 Lymphocytes # (Auto) 2.6 TH/MM3 Monocytes # (Auto) 1.0 TH/MM3 Eosinophils # (Auto) 0.1 TH/MM3 Basophils # (Auto) 0.1 TH/MM3 CBC Comment DIFF FINAL Differential Comment Blood Urea Nitrogen 21 MG/DL Creatinine 1.03 MG/DL Random Glucose 111 MG/DL Total Protein 7.0 GM/DL Albumin 3.2 GM/DL Calcium Level 9.1 MG/DL Alkaline Phosphatase 96 U/L Aspartate Amino Transf (AST/SGOT) 33 U/L Alanine Aminotransferase (ALT/SGPT) 29 U/L Total Bilirubin 0.6 MG/DL Sodium Level 138 MEQ/L Potassium Level 3.9 MEQ/L Chloride Level 104 MEQ/L Carbon Dioxide Level 26.7 MEQ/L Anion Gap 7 MEQ/L Estimat Glomerular Filtration Rate 52 ML/MIN Triglycerides Level 170 MG/DL Cholesterol Level 153 MG/DL LDL Cholesterol 63 MG/DL HDL Cholesterol 56.4 MG/DL Cholesterol/HDL Ratio 2.71 RATIO Vitamin B12 Level 589 PG/ML 25-Hydroxy Vitamin D Total 22.4 ng/ML Thyroid Stimulating Hormone 3rd Gen 2.270 uIU/ML Mental Status Examination Appearance woman, age appearing, oppositional and resistant Speech: Rapid Orientation: Person, Place Memory: Impaired (describe) Thought Process: Circumstantial, Goal Directed Thought Content: Bizarre thinking Hallucination Type: None Attention and Concentration: Abnormal Suicidal Ideation: Yes Previous Suicide Attempts: No Homicidal Ideation: Yes Previous Homicide Attempts: No Insight: Fair Judgment: Impulsive Affect: Irritable Mood: Irritable Motor Activity: Normal gait Assessment & Plan Problem List: (1) Alzheimer's dementia with behavioral disturbance ICD Codes: G30.8 - Other Alzheimer's disease; F02.81 - Dementia in other diseases classified elsewhere with behavioral disturbance (2) Dementia with behavioral disturbance ICD Codes: F03.91 - Unspecified dementia with behavioral disturbance Assessment & Plan: I have seen and examined this patient, reviewed documentation, and I agree and concur with assessment and plan of Dr. Okeefe. Assessment & Plan Estimated LOS: days Request HC Surrog/Guard Advoc?: Yes Ash Suero MD Apr 13, 2017 15:00
[2017-04-13 17:00] LABS: HEMOGLOBIN A1a 0.6 %; HEMOGLOBIN A1b 1.7 %; HEMOGLOBIN Ao 85.2 %; HEMOGLOBIN LA1C 2.1 %
[2017-04-13] MEDS: LORazepam 2 MG/ML VIAL IM PRN (21:00)
[2017-04-13] MEDS: ATENOLOL 25 MG TAB PO SCH (21:00)
[2017-04-13] MEDS: DONEPEZIL HCL 5 MG TAB PO SCH (21:00)
[2017-04-13] MEDS: ASPIRIN 81 MG CHEW TAB PO SCH (21:00)
[2017-04-14 06:44] VITALS: BP 122/54; PULSE 80; RESP 20; TEMP 97.2; O2SAT 96
[2017-04-14] MEDS: LOSARTAN 50 MG TAB PO SCH (09:41)
[2017-04-14] MEDS: MEMANTINE HCL 10 MG TAB PO SCH (09:41)
[2017-04-14] MEDS: LORazepam 2 MG/ML VIAL IM PRN (12:51)
--- NOTE | 2017-04-14 16:35 | HHI.PYPN ---
Subjective Remarks Patient seen in her room the floor staff she is calm with me though did state she had a "fit" yesterday. Per staff patient showed [facility] intimidating behavior issues evening and again this morning necessitating when necessary 3 Ativan. This reinforces family's history of patient's aggressiveness reflecting to her past history mental illness. Patient did have good response to IM Geodon earlier in this hospitalization. Will order Geodon 20 mg twice a day and if patient refuses 10 mg IM in its place Review of Systems Except as stated in HPI: all other systems reviewed are Neg Mental Status Examination Appearance: Appropriate Consciousness: Alert Orientation: Person, Place Speech: Pressured, Other (somewhat disorganized) Language: Other (poor) Fund of Knowledge: Poor Memory: Impaired Mood: Appropriate, Angry, Irritable Affect: Other (increase range and intensity) Thought Process & Associations: Linear Thought Content: Bizarre thinking Hallucination Type: None (denies) Delusion Type: Paranoid (mildly) Suicidal Ideation: No Suicidal Plan: No Suicidal Intention: No Homicidal Ideation: No Homicidal Plan: No Homicidal Intention: No Insight: Poor Judgment: Poor Results Vitals/IOs Vital Signs Date Time Temp Pulse Resp B/P (MAP) Pulse Ox O2 Delivery O2 Flow Rate FiO2 04/14/17 06:44 97.2 80 20 122/54 (76) 96 04/11/17 22:07 Room Air Intake and Output 04/14/17 04/14/17 04/15/17 08:00 16:00 00:00 Intake Total 0 ml Balance 0 ml Assessment & Plan Problem List: (1) Alzheimer's dementia with behavioral disturbance ICD Codes: G30.8 - Other Alzheimer's disease; F02.81 - Dementia in other diseases classified elsewhere with behavioral disturbance (2) Dementia with behavioral disturbance ICD Codes: F03.91 - Unspecified dementia with behavioral disturbance Assessment & Plan Estimated LOS: days patient showing increased volatile labile behaviors both initially evening and this a.m. necessitating when necessary medication. Will initiate Geodon orally at 20 mg twice a day and if patient refuses then milligrams IM in its place Justification for Cont. Inpt. At this time patient would decompensate to placed on the lower level of care Discharge Planning It appears returned to the patient's home might be problematic we may need to look at an [facility] placement Request HC Surrog/Guard Advoc?: Yes Dario Okeefe MD Apr 14, 2017 16:35
[2017-04-14] MEDS: ZIPRASIDONE HCL 20 MG CAP PO SCH (18:00)
[2017-04-14] MEDS: ZIPRASIDONE MESYLATE 20 MG VIAL IM SCH (18:00)
[2017-04-14] MEDS: ATENOLOL 25 MG TAB PO SCH (21:00)
[2017-04-14] MEDS: DONEPEZIL HCL 5 MG TAB PO SCH (21:25)
[2017-04-14] MEDS: ASPIRIN 81 MG CHEW TAB PO SCH (21:25)
[2017-04-14 21:30] VITALS: BP 130/65; PULSE 95; RESP 20; TEMP 97.4; O2SAT 99
[2017-04-15] MEDS: LOSARTAN 50 MG TAB PO SCH (09:00)
[2017-04-15] MEDS: ZIPRASIDONE HCL 20 MG CAP PO SCH ×2 (09:00→18:25)
[2017-04-15] MEDS: ZIPRASIDONE MESYLATE 20 MG VIAL IM SCH ×2 (09:00→18:00)
[2017-04-15] MEDS: MEMANTINE HCL 10 MG TAB PO SCH (09:00)
--- NOTE | 2017-04-15 11:22 | HHI.PYPN ---
Subjective Remarks Patient seen in her room with nurse Anil and counselor Ilsa, chart review, patient compliant medications. Patient calm with some underlying irritability and anger. Focus more on her hospitalization. It appears to be very little insight into her past history of mental illness. For now continue treatment Chief Complaint: patient suicidal confused threatening Review of Systems Except as stated in HPI: all other systems reviewed are Neg Mental Status Examination Appearance: Appropriate Consciousness: Alert Orientation: Person, Place Motor Activity: Abnormal gait Speech: Pressured, Other (somewhat disorganized) Language: Other (poor) Fund of Knowledge: Poor Memory: Impaired Mood: Appropriate, Angry, Irritable Affect: Other (increase range and intensity) Thought Process & Associations: Linear Thought Content: Bizarre thinking Hallucination Type: None (denies) Delusion Type: Paranoid (mildly) Suicidal Ideation: No Suicidal Plan: No Suicidal Intention: No Homicidal Ideation: No Homicidal Plan: No Homicidal Intention: No Insight: Poor Judgment: Poor Results Vitals/IOs Vital Signs Date Time Temp Pulse Resp B/P (MAP) Pulse Ox O2 Delivery O2 Flow Rate FiO2 04/14/17 21:30 97.4 95 20 130/65 (86) 99 04/11/17 22:07 Room Air Intake and Output 04/15/17 04/15/17 04/16/17 08:00 16:00 00:00 Intake Total 0 ml Balance 0 ml Assessment & Plan Problem List: (1) Alzheimer's dementia with behavioral disturbance ICD Codes: G30.8 - Other Alzheimer's disease; F02.81 - Dementia in other diseases classified elsewhere with behavioral disturbance (2) Dementia with behavioral disturbance ICD Codes: F03.91 - Unspecified dementia with behavioral disturbance Assessment & Plan Estimated LOS: days patient continues confused demented irritable, compliant medications Justification for Cont. Inpt. At this time patient will decompensate with placed in a lower level of care Discharge Planning Patient had failure brief placement in residential need to explore more restrictive structured environment Request HC Surrog/Guard Advoc?: Yes Dario Okeefe MD Apr 15, 2017 11:22
[2017-04-15] MEDS: ASPIRIN 81 MG CHEW TAB PO SCH (20:45)
[2017-04-15] MEDS: DONEPEZIL HCL 5 MG TAB PO SCH (20:45)
[2017-04-15] MEDS: diphenhydrAMINE HCL 50 MG CAP PO PRN (20:45)
[2017-04-15] MEDS: ATENOLOL 25 MG TAB PO SCH (20:47)
[2017-04-16 06:00] VITALS: BP 113/58; PULSE 70; RESP 15; O2SAT 96
[2017-04-16] MEDS: ZIPRASIDONE MESYLATE 20 MG VIAL IM SCH ×2 (09:00→18:00)
[2017-04-16] MEDS: MEMANTINE HCL 10 MG TAB PO SCH (09:36)
[2017-04-16] MEDS: ZIPRASIDONE HCL 20 MG CAP PO SCH ×2 (09:37→17:53)
[2017-04-16] MEDS: LOSARTAN 50 MG TAB PO SCH (09:37)
--- NOTE | 2017-04-16 12:40 | HHI.PYPN ---
Subjective Remarks Pt seen and discussed with staff. Pt was agitated and aggressive yesterday and required geodon IM yesterday. Today she has been more cooperative with care today and compliant with medications. She has not been agitated or aggressive today. No SI/HI Chief Complaint: Pt admitted for suicidal ideations and threatening behavior Mental Status Examination Appearance: Appropriate Consciousness: Alert Orientation: Person, Place Motor Activity: Normal gait Speech: Pressured, Other (somewhat disorganized) Language: Other (poor) Fund of Knowledge: Poor Memory: Impaired Mood: Appropriate, Angry, Irritable Affect: Other (increase range and intensity) Thought Process & Associations: Linear Thought Content: Bizarre thinking Hallucination Type: None (denies) Delusion Type: Paranoid (mildly) Suicidal Ideation: No Suicidal Plan: No Suicidal Intention: No Homicidal Ideation: No Homicidal Plan: No Homicidal Intention: No Insight: Poor Judgment: Poor Results Vitals/IOs Vital Signs Date Time Temp Pulse Resp B/P (MAP) Pulse Ox O2 Delivery O2 Flow Rate FiO2 04/16/17 06:00 70 15 113/58 (76) 96 04/14/17 21:30 97.4 Intake and Output 04/16/17 04/16/17 04/16/17 07:59 15:59 23:59 Intake Total 120 ml Balance 120 ml Assessment & Plan Problem List: (1) Alzheimer's dementia with behavioral disturbance ICD Codes: G30.8 - Other Alzheimer's disease; F02.81 - Dementia in other diseases classified elsewhere with behavioral disturbance (2) Dementia with behavioral disturbance ICD Codes: F03.91 - Unspecified dementia with behavioral disturbance Assessment & Plan Continue current tx plan. Estimated LOS: days Justification for Cont. Inpt. impairments in safety Request HC Surrog/Guard Advoc?: Yes Kelly Ace MD Apr 16, 2017 12:40
[2017-04-16 18:37] VITALS: BP 116/56; PULSE 80; RESP 18; TEMP 98; O2SAT 95
[2017-04-16] MEDS: DONEPEZIL HCL 5 MG TAB PO SCH (20:25)
[2017-04-16] MEDS: ASPIRIN 81 MG CHEW TAB PO SCH (20:25)
[2017-04-16] MEDS: diphenhydrAMINE HCL 50 MG CAP PO PRN (20:25)
[2017-04-16] MEDS: ATENOLOL 25 MG TAB PO SCH (20:26)
[2017-04-17] MEDS: ZIPRASIDONE MESYLATE 20 MG VIAL IM SCH ×2 (09:00→18:00)
[2017-04-17] MEDS: LOSARTAN 50 MG TAB PO SCH (09:34)
[2017-04-17] MEDS: MEMANTINE HCL 10 MG TAB PO SCH (09:34)
[2017-04-17] MEDS: ZIPRASIDONE HCL 20 MG CAP PO SCH ×2 (09:35→18:07)
--- NOTE | 2017-04-17 11:55 | HHI.PYPN ---
Subjective Remarks Pt seen and discussed with staff. She has been in a better mood and has been compliant with medications. She has been eating and has participated in unit activities today. No aggressive behavior and slept well. She initially refused vitals this morning but later complied. No SI/HI Chief Complaint: Pt admitted for suicidal ideations and threatening behavior Mental Status Examination Appearance: Appropriate Consciousness: Alert Orientation: Person, Place Motor Activity: Normal gait Speech: Hesitant Language: Adequate Fund of Knowledge: Poor Attention and Concentration: Inadequate Memory: Impaired Mood: Appropriate Affect: Flat Thought Process & Associations: Linear Thought Content: Delusional Hallucination Type: None (denies) Delusion Type: Paranoid (decreased) Suicidal Ideation: No Suicidal Plan: No Suicidal Intention: No Homicidal Ideation: No Homicidal Plan: No Homicidal Intention: No Insight: Poor Judgment: Poor Results Vitals/IOs Vital Signs Date Time Temp Pulse Resp B/P (MAP) Pulse Ox O2 Delivery O2 Flow Rate FiO2 04/16/17 18:37 98.0 80 18 116/56 (76) 95 Intake and Output 04/17/17 04/17/17 04/18/17 08:00 16:00 00:00 Intake Total 240 ml Balance 240 ml Assessment & Plan Problem List: (1) Alzheimer's dementia with behavioral disturbance ICD Codes: G30.8 - Other Alzheimer's disease; F02.81 - Dementia in other diseases classified elsewhere with behavioral disturbance (2) Dementia with behavioral disturbance ICD Codes: F03.91 - Unspecified dementia with behavioral disturbance Assessment & Plan Continue current tx plan. Estimated LOS: days Justification for Cont. Inpt. impairments in reality testing Request HC Surrog/Guard Advoc?: Yes Kelly Ace MD Apr 17, 2017 11:55
[2017-04-17 17:58] VITALS: BP 126/60; PULSE 78; RESP 16; TEMP 98; O2SAT 95
[2017-04-17 18:00] VITALS: BP 126/61; PULSE 78; RESP 16; TEMP 98; O2SAT 95
[2017-04-17] MEDS: DONEPEZIL HCL 5 MG TAB PO SCH (20:30)
[2017-04-17] MEDS: ATENOLOL 25 MG TAB PO SCH (20:30)
[2017-04-17] MEDS: ASPIRIN 81 MG CHEW TAB PO SCH (20:31)
[2017-04-18 06:16] VITALS: BP 112/62; PULSE 66; RESP 16; TEMP 97.1; O2SAT 96
[2017-04-18] MEDS: ZIPRASIDONE MESYLATE 20 MG VIAL IM SCH ×2 (09:21→17:31)
[2017-04-18] MEDS: LOSARTAN 50 MG TAB PO SCH (09:21)
[2017-04-18] MEDS: ZIPRASIDONE HCL 20 MG CAP PO SCH ×2 (09:22→17:31)
[2017-04-18] MEDS: MEMANTINE HCL 10 MG TAB PO SCH (09:22)
--- NOTE | 2017-04-18 10:48 | HHI.PYPN ---
Subjective Remarks Patient seen in her room with nurse Antolin and medical student chela patient laying calmly in bed calm cooperative did recognize me as her doctor. Denies suicidality homicidality voices or visions. Compliant medications. No behavioral problems at this time Chief Complaint: Pt admitted for suicidal ideations and threatening behavior Review of Systems Except as stated in HPI: all other systems reviewed are Neg Mental Status Examination Appearance: Appropriate Consciousness: Alert Orientation: Person, Place Motor Activity: Normal gait Speech: Hesitant Language: Adequate Fund of Knowledge: Poor Attention and Concentration: Inadequate Memory: Impaired Mood: Appropriate Affect: Flat Thought Process & Associations: Linear Thought Content: Delusional Hallucination Type: None (denies) Delusion Type: Paranoid (decreased) Suicidal Ideation: No Suicidal Plan: No Suicidal Intention: No Homicidal Ideation: No Homicidal Plan: No Homicidal Intention: No Insight: Poor Judgment: Poor Results Vitals/IOs Vital Signs Date Time Temp Pulse Resp B/P (MAP) Pulse Ox O2 Delivery O2 Flow Rate FiO2 04/18/17 06:16 97.1 66 16 112/62 (79) 96 Intake and Output 04/18/17 04/18/17 04/19/17 08:00 16:00 00:00 Intake Total 240 ml Balance 240 ml Assessment & Plan Problem List: (1) Alzheimer's dementia with behavioral disturbance ICD Codes: G30.8 - Other Alzheimer's disease; F02.81 - Dementia in other diseases classified elsewhere with behavioral disturbance (2) Dementia with behavioral disturbance ICD Codes: F03.91 - Unspecified dementia with behavioral disturbance Assessment & Plan Estimated LOS: days patient calm at the present time no behavior problems continues diffusely confused Justification for Cont. Inpt. At this time patient will decompensate the placed in a lower level of care Discharge Planning Placement remain somewhat problematic treatment team continues to work on that Request HC Surrog/Guard Advoc?: Yes Dario Okeefe MD Apr 18, 2017 10:48
[2017-04-18 18:00] VITALS: BP 137/63; PULSE 78; RESP 18; TEMP 97; O2SAT 96
[2017-04-18 20:30] VITALS: BP 138/64; PULSE 74; RESP 20
[2017-04-18] MEDS: DONEPEZIL HCL 5 MG TAB PO SCH (20:57)
[2017-04-18] MEDS: ASPIRIN 81 MG CHEW TAB PO SCH (20:57)
[2017-04-18] MEDS: ATENOLOL 25 MG TAB PO SCH (20:58)
[2017-04-19 05:36] VITALS: BP 162/86; PULSE 78; RESP 17; TEMP 97.9; O2SAT 94
[2017-04-19] MEDS: MEMANTINE HCL 10 MG TAB PO SCH (09:03)
[2017-04-19] MEDS: LOSARTAN 50 MG TAB PO SCH (09:03)
[2017-04-19] MEDS: ZIPRASIDONE HCL 20 MG CAP PO SCH ×2 (09:03→17:48)
[2017-04-19] MEDS: ZIPRASIDONE MESYLATE 20 MG VIAL IM SCH ×2 (09:04→17:48)
--- NOTE | 2017-04-19 10:54 | HHI.PYPN ---
Subjective Remarks Patient seen in day room with floor staff. Chart reviewed. Patient compliant medication, patient calm cooperative and pleasant, she denies suicidality homicidality voices or visions. Patient also seen by medical student chela who did Mini-Mental status exam that scored at 27. We are to assist us with this. Until discharge plans are more fixed patient to continue treatment here Considering discharge plans of patient returning to her own home with home health care and grainy demanding. However patient does not have [facility] home. We're attempting to reach patient's son who is power of commercial real estate attorney and does have Chief Complaint: Pt admitted for suicidal ideations and threatening behavior Review of Systems Except as stated in HPI: all other systems reviewed are Neg Mental Status Examination Appearance: Appropriate Consciousness: Alert Orientation: Person, Place Motor Activity: Normal gait Speech: Hesitant Language: Adequate Fund of Knowledge: Poor Attention and Concentration: Inadequate Memory: Impaired Mood: Appropriate Affect: Flat Thought Process & Associations: Linear Thought Content: Delusional Hallucination Type: None (denies) Delusion Type: Paranoid (decreased) Suicidal Ideation: No Suicidal Plan: No Suicidal Intention: No Homicidal Ideation: No Homicidal Plan: No Homicidal Intention: No Insight: Poor Judgment: Poor Results Vitals/IOs Vital Signs Date Time Temp Pulse Resp B/P (MAP) Pulse Ox O2 Delivery O2 Flow Rate FiO2 04/19/17 05:36 97.9 78 17 162/86 (111) 94 Assessment & Plan Problem List: (1) Alzheimer's dementia with behavioral disturbance ICD Codes: G30.8 - Other Alzheimer's disease; F02.81 - Dementia in other diseases classified elsewhere with behavioral disturbance (2) Dementia with behavioral disturbance ICD Codes: F03.91 - Unspecified dementia with behavioral disturbance (3) Bipolar disorder in partial remission ICD Codes: F31.70 - Bipolar disorder, currently in remission, most recent episode unspecified Assessment & Plan Estimated LOS: days patient continues calm no behavior problems at this time. Compliant with medications. Her Mini-Mental status examination score nurse show very little cognitive deficits at this time. We need to consider ever diagnosis her history of bipolar disorder Justification for Cont. Inpt. At this time patient may decompensate now placed an appropriate level of care Discharge Planning Will consider discharge if patient has access to her home with appropriate referrals for home health care and ariela rodriges Request HC Surrog/Guard Advoc?: Yes Dario Okeefe MD Apr 19, 2017 10:54
[2017-04-19] MEDS ORDERED: ATEN25TA PO (13:34)
[2017-04-19] MEDS ORDERED: ARIC5TAB2 PO (13:34)
[2017-04-19] MEDS ORDERED: COZA50TA PO (13:34)
[2017-04-19] MEDS ORDERED: ASPI81CH25 PO (13:34)
[2017-04-19] MEDS ORDERED: ZIPR20 PO (13:34)
[2017-04-19] MEDS ORDERED: NAME10TA PO (13:34)
--- NOTE | 2017-04-19 13:48 | HHI.DS ---
Psychiatry Discharge Summary Inpatient Psychiatric care?: Yes Advance Directive: No Reason Not Provided: unknown Mental Health AdvanceDirective: Yes Health Care Proxy: Yes Admission Admission Date Apr 12, 2017 at 12:12 Admission Diagnosis: (1) Alzheimer's dementia with behavioral disturbance ICD Code: G30.8 - Other Alzheimer's disease; F02.81 - Dementia in other diseases classified elsewhere with behavioral disturbance (2) Dementia with behavioral disturbance ICD Code: F03.91 - Unspecified dementia with behavioral disturbance (3) Bipolar disorder in partial remission ICD Code: F31.70 - Bipolar disorder, currently in remission, most recent episode unspecified Brief History 76-year-old female being admitted under a Lemus act for suicidal threats and aggressive behavior. Apparently the patient was [place] acted by law enforcement after she was behaving in a suicidal manner, threatening to kill herself if she was asked to stay at her current senior care facility. The patient wants to go home and live independently but apparently her children believe that is not reasonably possible. The patient is described on the Lemus act as having bipolar disorder as well as moderate dementia. This physician notes the patient is highly irritable and unable to sit still. Furthermore, the patient required restraints last night in the emergency department due to her agitation and physical aggression towards staff members.Upon interview, the patient continues to report she would rather kill herself than live at the current facility. She has stated this facility is "nice" but she wants to live at home. Nursing reports indicate her children cannot manage or help her enough for her to live at home. Additionally, the patient does have symptoms of dementia, including short term memory loss, disorientation intermittently, impaired judgment and impulsivity. She denies any recent or remote abuse of alcohol or drugs. Patient is a 76 years old woman, domiciled alone in [place], , mother of 3 kids, with psychotic history of dementia, who was Lemus acted due to aggressive behavior, suicidal ideation. Patient was seen today, she is in her bed, oppositional and reluctant to provide information. She says that she is not discharged back home "I am not going to eat any mote and I am not going to leave my bed". Tobacco Use In Past 30 Days: No Tobacco Past 30 Days Alcohol Use: Never Hospital Course Patient's initial confusion irritability did soften that she became compliant and cooperative with familiar with him the treatment. She should increase compliance with the medication. Her paranoia did resolve. She denies suicidality homicidality voices or visions. Mini-Mental status exam done by medical school soon came back at 27 and that done by counselor Lolita came back at 30. The been conversation patient's sister and brothers. The brother is power of card tender well supply us with case patient can return to her own home. At this time patient has reached maximum benefit from this hospitalization to be discharged today will also refer to home health care refer to renetta rodriges. And follow-up through primary care doctor Results Blood Pressure 162 / 86 Vital Signs Date Time Temp Pulse Resp B/P (MAP) Pulse Ox O2 Delivery O2 Flow Rate FiO2 04/19/17 05:36 97.9 78 17 162/86 (111) 94 Laboratory Results Test 04/13/17 10:25 Cholesterol Level 153 MG/DL (120-200) HDL Cholesterol 56.4 MG/DL (40.0-60.0) Hemoglobin A1c 5.6 % (4.3-6.0) LDL Cholesterol 63 MG/DL (0-99) Triglycerides Level 170 MG/DL (42-150) Summary of Procedures None done Imaging Last Impressions Chest X-Ray 04/11/17 0000 Signed Impressions: Service Date/Time: Tuesday, April 11, 2017 23:05 - CONCLUSION: No evidence of acute cardiopulmonary disease. Dario Ron MD Pending results at discharge: No Medications # of Antipsychotic meds at D/C: 1 Approp Antipsych med options 1 - Minimum of three failed multiple trials of monotherapy. 2 - Documented plan to taper to monotherapy due to previous use of multiple meds OR cross-taper in progress at D/C. 3 - Documentation of augmentation of Clozapine. 4 - Justification other than those listed in allowable values 1-3, document here : Discharge Discharge Date: Apr 19, 2017 Discharge Diagnosis: (1) History of bipolar disorder Diagnosis: Secondary ICD Code: Z86.59 - Personal history of other mental and behavioral disorders (2) Dementia with behavioral disturbance Diagnosis: Secondary ICD Code: F03.91 - Unspecified dementia with behavioral disturbance (3) Bipolar disorder in partial remission Diagnosis: Principal ICD Code: F31.70 - Bipolar disorder, currently in remission, most recent episode unspecified Pt Condition on Discharge: Stable Discharge Disposition: Discharge Home Discharge Instructions Diet Instructions: As Tolerated, No Restrictions Activities you can perform: Regular-No Restrictions Scheduled Appointment: your PCP Appointment Date: Apr 25, 2017 Appointment Time: 2pm Discharge Time > 30 minutes Mental Status Examination Appearance: Appropriate Consciousness: Alert Orientation: Person, Place Motor Activity: Normal gait Speech: Hesitant Language: Adequate Fund of Knowledge: Poor Attention and Concentration: Inadequate Memory: Impaired Mood: Appropriate Affect: Flat Thought Process & Associations: Linear Thought Content: Delusional Hallucination Type: None (denies) Delusion Type: Paranoid (decreased) Suicidal Ideation: No Suicidal Plan: No Suicidal Intention: No Homicidal Ideation: No Homicidal Plan: No Homicidal Intention: No Insight: Poor Judgment: Poor Discharge/Advance Care Plan Health Problems: (1) Alzheimer's dementia with behavioral disturbance (2) Dementia with behavioral disturbance (3) Bipolar disorder in partial remission Goals to promote your health * To prevent worsening of your condition and complications * To maintain your health at the optimal level Directions to meet your goals Take your medications as prescribed Follow your dietary instruction Follow activity as directed Keep your appointments as scheduled Take your immunizations and boosters as scheduled If your symptoms worsen call your PCP, if no PCP go to Urgent Care Center or Emergency Room For 31/01 questions related to your inpatient stay or results of tests pending at discharge, please contact Dr. Dario Okeefe at Smoking is Dangerous to Your Health. Avoid second hand smoking Problem Qualifiers (1) Bipolar disorder in partial remission: Qualified Codes: F31.77 - Bipolar disorder, in partial remission, most recent episode mixed Dario Okeefe MD Apr 19, 2017 13:48
[2017-04-19 18:18] VITALS: BP 144/67; PULSE 69; RESP 18; TEMP 98.1; O2SAT 98
== END 2017-04-19 19:15 | disposition home or self-care (01) | DRG 57 ==
LOC: NEPC 19:32 → NEDA 04-12 12:12 → H250 04-12 14:10
PROVIDERS: ADMIT Psychiatry & Neurology Psychiatry; ATTEND Psychiatry & Neurology Psychiatry
DX: G30.9 Alzheimer's disease, unspecified (principal); F02.81 Dementia in other diseases classified elsewhere, unspecified severity, with behavioral disturbance; R45.851 Suicidal ideations; Z81.8 Family history of other mental and behavioral disorders; I10 Essential (primary) hypertension; Z78.1 Physical restraint status; F31.70 Bipolar disorder, currently in remission, most recent episode unspecified
CPT/HCPCS: 71010; 80053; 80061; 81001; 82306; 82607; 83036; 84443; 85025; 93005; J1200; J2060; J3486; Q0163